=== PATIENT | male | born 1995 ===

== ENCOUNTER 2018-05-31 17:59 | Inpatient (IN) | payer SELFPAY ==
[2018-05-31] MEDS ORDERED: PROPOFOL/EMULSION 1,000 MG/100 ML BOTTLE IV ONE ×2 (18:08→18:21)
[2018-05-31 18:29] LABS: PLATELET COUNT 324 10^3/uL (150-400)
[2018-05-31 18:32] LABS: INR 1.14 (0.83-1.16); PROTIME(PATIENT) 14.8 SEC (12.0-15.0)
[2018-05-31] MEDS ORDERED: fentaNYL 100 MCG/2 ML INJ IVP ONE ×3 (18:43→21:30)
[2018-05-31] MEDS ORDERED: PROPOFOL 200 MG/20 ML VIAL IVP ONE (18:44)
[2018-05-31] MEDS ORDERED: SUCCINYLCHOLINE CHLORIDE 200 MG/10 ML SYR IVP ONE (18:45)
[2018-05-31] MEDS ORDERED: NS 2,000 ML IV ONE (18:45)
[2018-05-31] MEDS ORDERED: ETOMIDATE 40 MG/20 ML INJ IVP ONE (18:46)
[2018-05-31] MEDS: PROPOFOL/EMULSION 100 ML IV SCH (18:54)
[2018-05-31] MEDS ORDERED: fentaNYL/NACL 100 ML IV SCH (19:00)
[2018-05-31] MEDS ORDERED: KETAMINE 200 MG/20 ML VIAL ONE (19:36)
[2018-05-31] MEDS ORDERED: VECURONIUM BROMIDE 10 MG VIAL ONE (19:37)
[2018-05-31] MEDS ORDERED: NS 1,000 ML IV ONE ×2 (19:48→21:30)
[2018-05-31] MEDS ORDERED: MIDAZOLAM 2 MG/2 ML VIAL ONE (19:52)
[2018-05-31] MEDS ORDERED: fentaNYL 100 MCG/2 ML INJ ONE (19:52)
[2018-05-31] MEDS ORDERED: LIDOCAINE 1% 300 MG/30 ML SDV ONE (19:52)
[2018-05-31] MEDS ORDERED: IOHEXOL 350mgI/ML (OMNIPAQUE) 150 ML BTL IV ONE (19:53)
--- NOTE | 2018-05-31 19:55 | EDPHY ---
H & P Time Seen by Provider: 05/31/18 18:03 HPI/ROS: HPI Cardiac arrest. 22-year-old male by ambulance emergently. This patient was playing [place] with friends [place] [employer] [place] when he suddenly collapsed and was unresponsive. Friends and bystanders initiated CPR immediately. He was shocked once by an AED according to EMS. On EMS arrival he was breathing spontaneously but was unresponsive. On arrival to the emergency department he was in the same condition, breathing spontaneously but agonal/shallow and unresponsive. No history of trauma. EMS reports pulse oximetry reading of 96% during their care. Later history obtained from his parents, no history of seizures, he does have a history of palpitations and lightheadedness with exercise when he was in the 8th and 9th grade. He was evaluated by a vice president integrated and had a remote cardiac technologist placed at that time. No clear diagnosis was established. He has not had any complaints of palpitations with exercise or lightheadedness or other complaints with exercise since that time. His parents tell me that he is very physically active. ROS: Unable to obtain. Past medical history: As above. Social history: Nonsmoker. No drugs or alcohol according to the parents. Student [employer]. Physical Exam: General Appearance: Eyes open. Unresponsive. Agonal and shallow spontaneous respirations. Head: Normocephalic atraumatic. Eyes: Pupils equal and round and reactive to light but sluggish at 3-2 mm bilaterally. No lid edema, erythema or injection. ENT, Mouth: Mucous membranes are moist. The pharyngeal tissues are unremarkable. No edema or swelling. No asymmetry suggestive of abscess. No erythema or exudates. No tongue lacerations/contusion or abrasions. Respiratory: There are no retractions, lungs are clear to auscultation anteriorly with short shallow respirations. Respiratory rate of 15. Cardiovascular: Regular rate and rhythm. No murmur appreciated. Gastrointestinal: Abdomen is soft. Neurological: Intermittent shivering. I do not believe this is seizure activity. He has moved all 4 extremities. Skin: Warm and dry, no rashes. Musculoskeletal: Neck is supple. Extremities are symmetrical. Database: EKG: EKG time is 6:02 p.m.; EKG shows a narrow complex normal sinus rhythm with a ventricular rate of 93. Probable early repolarization pattern. Possible left ventricular hypertrophy. The MS, QRS, QT intervals are within normal limits. There are no ST-T wave changes indicative of ischemic or injury pattern. No evidence of right heart strain. No evidence of WPW, Brugada syndrome, hypertrophic cardiomyopathy. Interpreted by me. Imaging: CT head without contrast: No hemorrhage. No acute pathology. Results were discussed with staff radiologist Dr. Dino Nielsen. Chest x-ray AP portable; the cardiac mediastinal silhouette is unremarkable. Endotracheal tube tip is at the level of the clavicles. No evidence of infiltrate or pneumothorax. No acute cardiopulmonary disease process noted. Interpreted by me. Procedures: Indication for the procedure was unresponsive, probable post-cardiac arrest with a possible anoxic brain injury. The patient was preoxygenated with 100% oxygen by face mask. The patient was sedated with 20 mg of IV etomidate and paralyzed with 200 mg of IV succinylcholine. The patient was orally endotracheally intubated under direct visualization with a 6.5 ETT. Initial attempt made with 7.5 ET tube. This was too big and I was not able to pass the tube through the glottic opening. Tracheal intubation was confirmed with misting on the tube; breath sounds were auscultated equally bilaterally; appropriate color change with [place] Tidal CO2 detector, capnography waveform is appropriate, oxygen saturation after procedure is 95%. Chest X-ray shows ETT in good position. The procedure was performed by myself. Emergency department course: Just after arrival, the patient was intubated as above. This was followed by sedation with a combination of propofol and fentanyl. This patient's presentation is most consistent with cardiac arrest and possible anoxic brain injury. Although seizure unlikely propofol has strong antiepileptic activity. The patient was initially resistant to sedative medications, bucking the vent etc. He was given several bolus doses of propofol at 40 mg each and fentanyl at 100 mcg each through his emergency department course. Propofol drip was then continued 50 micrograms/kilogram per minute and fentanyl drip initiated at 1 mcg per minute. After intubation EKG was obtained and reviewed by myself. This was followed by a chest x-ray and transfer to CT for noncontrast CT scan of his head. Once this was verified as normal. Echocardiogram was obtained. I discussed the results of his echocardiogram with vice president integrated Dr. Souleymane Luna as Rah Eubanks. Initial impression is that this study is normal. The patient had several episodes of a shivering like activity. I do not believe this represented seizure activity. According to his parents he has no history of seizures and there was no evidence of tongue biting. Given his previous history of some undefined arrhythmia it is most likely his presentation is secondary to arrhythmia and cardiac arrest. EMS stated that pulse oximetry on their evaluation was 96%. While in the emergency department his pulse oximetry did not dip below 93% even during intubation. After discussing the case further with on-call vice president integrated Dr. Eubanks well as Dr. Daniel Armando. Decision was made to take the patient to the canvas shop laborer for coronary angiogram in to initiate HACA protocol. Prior to transfer to the canvas shop laborer, the patient was paralyzed with 10 mg of IV vecuronium in consultation with vice president integrated Dr. Daniel Armando. Dr. Daniel Armando was at the patient's bedside at 7:40 p.m.. The patient received a total of 2 L of IV normal saline during his emergency department stay. Wise catheter was placed. The patient was transferred to the canvas shop laborer in stable condition under the care of Dr. Armando. I also spoke to Dr. Hastings, hospitalist on-call who will serve as the primary admitting physician for this patient. He evaluated the patient in the emergency department as well. I spoke with the patient's parents twice during his emergency department care. They consented to hypothermia treatment as well as the canvas shop laborer and other measures taken during his emergency department course. 10:45 p.m., I spoke with the patient's mother. They live in [place]. She and her will arrive at the hospital tomorrow morning. I updated both of them on his care and current condition. All of her questions were answered. Differential Diagnosis: The differential diagnosis on this patient includes but is not limited to cardiac arrest secondary to arrhythmia, anoxic brain injury. Seizure, meningitis, encephalitis, hypoglycemia, traumatic brain injury unlikely. This represents a partial list of diagnoses considered. These considerations are based on history, physical exam, past history, reassessment and diagnostic testing. Smoking Status: Unknown if ever smoked Constitutional: Initial Vital Signs Heart Rate 94 05/31/18 17:59 Respiratory Rate 8 L 05/31/18 17:59 Blood Pressure 155/112 H 05/31/18 17:59 O2 Sat (%) 94 05/31/18 17:59 O2 Delivery Mode Ventilator Allergies/Adverse Reactions: Sulfa (Sulfonamide Antibiotics) Allergy (Verified 06/01/18 14:21) GI Upset Home Medications: Medication Instructions Recorded NK [No Known Home Meds] 05/31/18 Medical Decision Making Critical Care Time: I spent a total of 106 minutes of critical care time in obtaining history, performing a physical exam, bedside monitoring of interventions, collecting and interpreting tests and discussion with consultants but not including time spent performing procedures. - Data Points Laboratory Results: Laboratory Results 05/31/18 18:00 05/31/18 18:09 Medications Given: Dextrose (Dextrose 50% Syringe) 25 gm IVP PRN PRN PRN Reason: Hypoglycemia Stop: 11/28/18 22:24 Last Admin: 06/02/18 02:26 Dose: 12.5 gm Sodium Chloride (Ns) 1,000 mls @ 100 mls/hr IV CONT BLAYNE Stop: 11/27/18 21:29 Last Admin: 06/02/18 05:52 Dose: 1,000 mls Fentanyl/Sodium Chloride (Fentanyl 10 Mcg/Ml (Premix)) 100 mls @ 0 mls/hr IV CONT BLAYNE; Per Protocol PRN Reason: Protocol Stop: 06/10/18 21:29 Last Admin: 06/02/18 00:33 Dose: 100 mls Propofol (Diprivan 10 Mg/Ml (Premix)) 100 mls @ 0 mls/hr IV CONT BLAYNE; Per Protocol PRN Reason: Protocol Stop: 11/27/18 21:29 Last Admin: 06/02/18 11:36 Dose: 100 mls Vecuronium [place] 50 mg/ (Dextrose) 50 mls @ 0 mls/hr IV CONT BLAYNE; Per Protocol PRN Reason: Protocol Stop: 11/27/18 21:29 Last Admin: 06/01/18 22:32 Dose: 50 mls Norepinephrine 4 mg/ Sodium (Chloride) 504 mls @ 0 mls/hr IV CONT PRN; Protocol ; Per Protocol PRN Reason: MAP less than 80 mmHg Stop: 11/27/18 21:29 Last Admin: 06/01/18 02:13 Dose: 504 mls Nicardipine/Sodium Chloride (Cardene 0.1 Mg/Ml (Premix)) 200 mls @ 0 mls/hr IV CONT PRN; Protocol; Per Protocol PRN Reason: SBP greater than 160mmHg Stop: 11/27/18 21:29 Last Admin: 06/01/18 01:30 Dose: 200 mls Pantoprazole Sodium (Protonix) 40 mg IVP Q6H BLAYNE Stop: 11/27/18 23:44 Last Admin: 06/02/18 11:34 Dose: 40 mg Discontinued Medications Etomidate (Etomidate) 20 mg IVP EDNOW ONE Stop: 05/31/18 18:47 Last Admin: 05/31/18 18:54 Dose: 20 mg Fentanyl (Sublimaze) 300 mcg IVP EDNOW ONE Stop: 05/31/18 18:44 Last Admin: 05/31/18 18:54 Dose: 300 mcg Fentanyl (Sublimaze) 100 mcg IVP EDNOW ONE Stop: 05/31/18 19:01 Last Admin: 05/31/18 19:01 Dose: 100 mcg Fentanyl (Sublimaze) 50 mcg IVP ONCE ONE Stop: 05/31/18 21:31 Last Admin: 05/31/18 23:35 Dose: Not Given Fentanyl/Sodium Chloride (Fentanyl 10 Mcg/Ml (Premix)) 100 mls @ 0 mls/hr IV CONT BLAYNE; As Directed PRN Reason: Protocol Stop: 06/10/18 18:59 Last Admin: 05/31/18 19:15 Dose: 100 mls Propofol (Diprivan 10 Mg/Ml (Premix)) 100 mls @ 0 mls/hr IV CONT BLAYNE; Titrate PRN Reason: Protocol Stop: 11/27/18 18:59 Last Admin: 06/01/18 01:31 Dose: 100 mls Sodium Chloride (Ns) 2,000 mls @ 0 mls/hr IV EDNOW ONE; Wide Open PRN Reason: Protocol Stop: 05/31/18 18:46 Last Admin: 05/31/18 18:45 Dose: 2,000 mls Sodium Chloride (Ns) 1,000 mls @ 0 mls/hr IV EDNOW ONE; As Directed PRN Reason: Protocol Stop: 05/31/18 19:49 Last Admin: 05/31/18 19:53 Dose: 1,000 mls Sodium Chloride (Ns) 1,000 mls @ 0 mls/hr IV ONCE ONE PRN Reason: Wide Open Stop: 05/31/18 21:31 Last Admin: 05/31/18 23:39 Dose: Not Given Levetiracetam (Keppra (Premix)) 100 mls @ 400 mls/hr IV ONCE ONE Stop: 05/31/18 21:43 Last Admin: 05/31/18 21:54 Dose: 100 mls Potassium Chloride (Potassium Cl 20 Meq (Premix)) 50 mls @ 50 mls/hr IV Q1H [facility] Stop: 06/01/18 03:44 Last Admin: 06/01/18 03:09 Dose: 50 mls Potassium Chloride (Potassium Cl 10 Meq (Premix)) 50 mls @ 100 mls/hr IV Q30M [facility] Stop: 06/01/18 08:44 Last Admin: 06/01/18 08:42 Dose: 50 mls Potassium Chloride (Potassium Cl 10 Meq (Premix)) 50 mls @ 100 mls/hr IV Q30M [facility] Stop: 06/01/18 15:01 Last Admin: 06/01/18 15:26 Dose: 50 mls Miscellaneous Information (Message To Rn) 1 ea MISC ONCE ONE Stop: 05/31/18 21:31 Last Admin: 05/31/18 23:35 Dose: 1 ea Miscellaneous Information (Message To Rn) 1 ea MISC DAILY [facility] Stop: 06/02/18 08:59 Last Admin: 06/01/18 09:13 Dose: 1 ea Miscellaneous Information (Message To Rn) 1 ea MISC DAILY [facility] Stop: 06/02/18 08:59 Last Admin: 06/01/18 09:13 Dose: 1 ea Propofol (Diprivan) 90 mg IVP EDNOW ONE Stop: 05/31/18 18:45 Last Admin: 05/31/18 18:54 Dose: 90 mg Succinylcholine Chloride (Quelicin) 200 mg IVP EDNOW ONE Stop: 05/31/18 18:46 Last Admin: 05/31/18 18:54 Dose: 200 mg Point of Care Test Results: Chemistry 05/31/18 05/31/18 18:17 18:09 POC Sodium 146 mEq/L H mEq/L (135-145) POC Potassium 3.0 mEq/L L mEq/L (3.3-5.0) POC Chloride 105 mEq/L mEq/L (97-110) POC Total CO2 16 mEq/L L mEq/L (22-31) POC BUN 10 mg/dL mg/dL (7-23) POC Creatinine 1.5 mg/dL H mg/dL (0.7-1.3) POC Glucose 195 mg/dL H mg/dL (70-100) POC Troponin I 0.01 ng/mL ng/mL (0.00-0.08) Blood Gas/Lactic Acid-Arterial 05/31/18 18:50 Tidal Volume 400 ISTAT H&H 05/31/18 18:09 POC Hgb 15.3 gm/dL gm/dL (13.7-17.5) POC Hct 45 % % (40-51) Departure - Departure Disposition: [facility] [place] Acute Clinical Impression: Unresponsive, Cardiac arrest
[2018-05-31] MEDS ORDERED: BIVALIRUDIN 250 MG/5 ML VIAL IV ONE (19:56)
[2018-05-31] MEDS ORDERED: ATROPINE SULFATE 1 MG/10 ML SYR ONE (19:56)
[2018-05-31] MEDS ORDERED: EPINEPHrine 1 MG/10 ML SYR IVP ONE (19:56)
[2018-05-31] MEDS ORDERED: ONDANSETRON 4 MG/2 ML VIAL IVP PRN (20:10)
--- NOTE | 2018-05-31 20:12 | PDHPUP ---
History & Physical Update H&P update statement: This history and physical update is based on an assessment of the patient which was completed after admission or registration (within 24 hours), but prior to the surgery/procedure. H&P update: H&P reviewed & patient examined, no change in patient's condition since H&P completed
--- NOTE | 2018-05-31 20:13 | PDPROPOC ---
Sedation Plan of Care Sedation Plan of Care: vital signs stable, mental status noted ASA Classification: ASA 2 Planned drugs: other (Currently intubated and sedated with propofol.) Mallampati Score: Unable to assesss Mallampati Reference Image:
--- NOTE | 2018-05-31 20:56 | PDDXCAT ---
Diagnostic Cath Note - . Date: 05/31/18 Career Advisor: Tr Indication: other (Possible cardiac arrest) - Procedure Access: right groin Procedure: left heart catheterization, coronary angiography, left ventriculogram , other (Placement of cooling catheter for targeted temperature management.) - Materials Left Heart Cath size: 6F Left Heart Cath materials: standard multipack (JL4, JR4, pigtail) - Findings-Left Heart Catheterization LM: Angiographically normal. LAD: Angiographically normal. LCX: Angiographically normal. RCA: Angiographically normal. EDP: 33 mmHg LVEF: 70% Wall motion: Normal Complications: None Estimated blood loss: <50ml Assessment: 1) Angiographically normal coronary arteries. 2) Normal left ventricular systolic function. 3) Uneventful placement of a Zoll Quatrocath via the RFV for targeted temperature management. Patient Problems: Problems Problem Status Onset Cardiac arrest Acute Unresponsive Acute
--- NOTE | 2018-05-31 21:07 | ECHO ---
[email or web address] [id number] Main: [phone] Fax: Transthoracic Echocardiogram Name: FEDERICO ROMERO MR#: [id number] Study Date: 05/31/2018 Study Time: Date of : 1995 Age: 22 year(s) Height: ( ) Weight: ( ) BSA: Gender: Male Examination: Limited Echo Indication: LIMITED FOR VALVES Image Quality: Contrast: Requested by: Cedrick Hastings BP: / Heart Rate: Rhythm: Indication: LIMITED FOR VALVES Procedure Staff Dixonac Operator: Leesa Davis [facility] Reading Physician: Daniel Armando MD Requesting Provider: Conclusions: Mild mitral valve regurgitation is present. Trivial tricuspid valve regurgitation. Note: this study consists of additional views obtained in the cardiac rangel[employer] conservation laborer just prior to cath procedure. Extra views obtained because the tricuspid valve was not well visualized in the ER. See prior report. Measurements: Chambers Valvular Assessment AV/MV Valvular Assessment TV/PV Normal Normal Normal Name Value Range Name Value Range Name Value Range Continued Measurements: Findings: Mitral Valve: The mitral valve is normal in appearance and function. Mild mitral valve regurgitation is present. Aortic Valve: The aortic valve is normal in appearance and function. Tricuspid Valve: The tricuspid valve is normal in appearance and function. Trivial tricuspid valve regurgitation. (No Signature Object) Patient: FEDERICO ROMERO Study Date: 05/31/2018 Page 1 of 1 [id number]
--- NOTE | 2018-05-31 21:20 | CPEKG ---
Test Reason : OPEN Blood Pressure : / mmHG Vent. Rate : 093 BPM Atrial Rate : 093 BPM P-R Int : 185 ms QRS Dur : 091 ms QT Int : 344 ms P-R-T Axes : 083 087 -18 degrees QTc Int : 428 ms Sinus rhythm Anterior infarct, possibly acute Confirmed by Dima Talavera ([id number]) on 05/31/2018 9:19:37 PM Referred By: Dima Talavera Confirmed By:Dima Talavera
[2018-05-31] MEDS ORDERED: levETIRAcetam 1000MG/NACL 100 ML IV ONE (21:29)
[2018-05-31] MEDS ORDERED: NOREPINEPHRINE BITARTRATE 4 MG in NS 500 ML IV PRN (21:30)
[2018-05-31] MEDS ORDERED: MIDAZOLAM 2 MG/2 ML VIAL IVP PRN (21:30)
[2018-05-31] MEDS ORDERED: NS 250 ML IV PRN (21:30)
[2018-05-31] MEDS ORDERED: MIDAZOLAM HCL 50 MG in D5W 50 ML IV PRN (21:30)
[2018-05-31] MEDS ORDERED: RN MUST ADD K & MAG PROT TO WORKLIST MISC ONE (21:30)
--- NOTE | 2018-05-31 21:45 | PDGENHP ---
History and Physical - Chief Complaint unresponsive - History of Present Illness 22 yo male was playing [place] [employer] [place] when he suddenly collapsed and was unresponsive. Friends in bystanders initiated CPR immediately. He was shocked once by an AED according to EMS. On EMS arrival he was breathing spontaneously but was unresponsive. On arrival to the emergency department he was in the same condition, breathing spontaneously but agonal E and unresponsive. He was intubated. Cardiology was consulted. An echocardiogram was unremarkable. A troponin is unremarkable. According to his parents, no history of seizures, history of palpitations with exercise when he was in the 8th and 9th grade. He was evaluated by a fashion design professor and had a remote fulling machine operator placed for some time. No clear diagnosis was established. He has not had any complaints of palpitations with exercise or lightheadedness or other complaints with exercise since that time. Syncope has not been mentioned as part of his medical history. Magnesium was not checked. He was not noted to have arrhythmia on presentation. He was noted to be shivering prior to initiation of HACA. No e/o of tongue biting ROS: Unable to obtain. Past medical history: As above. Social history: Nonsmoker. No drugs or alcohol according to the parents. Student [employer]. EKG:Query ST elevation anterior leads Echo: reported no right heart strain, normal LVEF, no wall motion abnormalities CT head without contrast: No hemorrhage. No acute pathology. Chest x-ray AP portable; the cardiac mediastinal silhouette is unremarkable. Endotracheal tube tip is at the level of the clavicles. No evidence of infiltrate or pneumothorax. No acute cardiopulmonary disease process noted. Interpreted by me. History Information - Allergies/Home Medication List Allergies/Adverse Reactions: Sulfa (Sulfonamide Antibiotics) Allergy (Verified 05/31/18 18:30) Home Medications: Unobtainable 05/31/18 [Last Taken Unknown] I have personally reviewed and updated: medical history, social history - Social History Smoking Status: Unknown if ever smoked Review of Systems Review of Systems: ROS: 10pt was reviewed & negative except for what was stated in HPI & below Physical Exam Physical Exam: Temp Pulse Resp BP Pulse Ox 37.1 C 98 16 117/62 98 05/31/18 20:30 05/31/18 20:30 05/31/18 20:30 05/31/18 20:30 05/31/18 20:30 Constitutional: no apparent distress Eyes: PERRL, No EOMI Ears, Nose, Mouth, Throat: moist mucous membranes Cardiovascular: regular rate and rhythym, No edema Respiratory: no respiratory distress, reduced air movement Gastrointestinal: normoactive bowel sounds, soft, non-tender abdomen Skin: warm Neurologic: No AAOx3 Lymph, Heme, Immunologic: No petechiae Lab Data & Imaging Review 05/31/18 18:00 05/31/18 18:09 WBC 11.45 10^3/uL (3.80-9.50) H 05/31/18 18:00 RBC 4.80 10^6/uL (4.40-6.38) 05/31/18 18:00 Hgb 14.8 g/dL (13.7-17.5) 05/31/18 18:00 POC Hgb 15.3 gm/dL (13.7-17.5) 05/31/18 18:09 Hct 44.9 % (40.0-51.0) 05/31/18 18:00 POC Hct 45 % (40-51) 05/31/18 18:09 MCV 93.5 fL (81.5-99.8) 05/31/18 18:00 MCH 30.8 pg (27.9-34.1) 05/31/18 18:00 MCHC 33.0 g/dL (32.4-36.7) 05/31/18 18:00 RDW 12.8 % (11.5-15.2) 05/31/18 18:00 Plt Count 324 10^3/uL (150-400) 05/31/18 18:00 MPV 10.8 fL (8.7-11.7) 05/31/18 18:00 Neut % (Auto) Not Reported 05/31/18 18:00 Lymph % (Auto) Not Reported 05/31/18 18:00 Twiggs % (Auto) Not Reported 05/31/18 18:00 Eos % (Auto) Not Reported 05/31/18 18:00 Baso % (Auto) Not Reported 05/31/18 18:00 Nucleat RBC Rel Count Not Reported 05/31/18 18:00 Absolute Neuts (auto) Not Reported 05/31/18 18:00 Absolute Lymphs (auto) Not Reported 05/31/18 18:00 Absolute Monos (auto) Not Reported 05/31/18 18:00 Absolute Eos (auto) Not Reported 05/31/18 18:00 Absolute Basos (auto) Not Reported 05/31/18 18:00 Absolute Nucleated RBC Not Reported 05/31/18 18:00 Immature Gran % Not Reported 05/31/18 18:00 Seg Neutrophils % 74.3 % 05/31/18 18:00 Band Neutrophils % 0.0 % 05/31/18 18:00 Lymphocytes % 24.7 % 05/31/18 18:00 Monocytes % 1.0 % 05/31/18 18:00 Eosinophils % 0.0 % 05/31/18 18:00 Basophils % 0.0 % 05/31/18 18:00 Metamyelocytes % 0.0 % 05/31/18 18:00 Myelocytes % 0.0 % 05/31/18 18:00 Promyelocytes % 0.0 % 05/31/18 18:00 Blast Cells % 0.0 % 05/31/18 18:00 Immature Gran # Not Reported 05/31/18 18:00 Absolute Seg Neuts 8.51 10^3/uL (1.70-6.50) H 05/31/18 18:00 Absolute Band Neuts 0.00 10^3/uL (0.00-0.70) 05/31/18 18:00 Absolute Lymphocytes 2.83 10^3/uL (1.00-3.00) 05/31/18 18:00 Absolute Monocytes 0.11 10^3/uL (0.30-0.80) L 05/31/18 18:00 Absolute Eosinophils 0.00 10^3/uL (0.03-0.40) L 05/31/18 18:00 Absolute Basophils 0.00 10^3/uL (0.02-0.10) L 05/31/18 18:00 Absolute Metamyelocyte 0.00 10^3/mL (0.00-0.00) 05/31/18 18:00 Absolute Myelocytes 0.00 10^3/mL (0.00-0.00) 05/31/18 18:00 Absolute Promyelocytes 0.00 10^3/uL (0.00-0.00) 05/31/18 18:00 Absolute Plasma Cells 0.00 10^3/uL (0.00-0.00) 05/31/18 18:00 Nucleated RBCs 0 /100 WBC (0-0) 05/31/18 18:00 RBC/WBC/PLT Morphology NORMAL (NORMAL) 05/31/18 18:00 Absolute Blast Cells 0.00 10^3/uL (0.00-0.00) 05/31/18 18:00 Plasma Cells % 0.0 % 05/31/18 18:00 Platelet Estimate ADEQUATE (ADEQ) 05/31/18 18:00 PT 14.8 SEC (12.0-15.0) 05/31/18 18:09 INR 1.14 (0.83-1.16) 05/31/18 18:09 APTT 26.3 SEC (23.0-38.0) 05/31/18 18:09 Puncture Site LEFT RADIAL 05/31/18 19:43 Patient Temperature 37.0 DEGREES 05/31/18 19:43 pCO2 41 mmHg (34-38) H 05/31/18 19:43 pO2 149 mmHg (65-75) H 05/31/18 19:43 Total CO2 23 mEq/L (23-27) 05/31/18 19:43 ABG pH 7.35 (7.35-7.45) 05/31/18 19:43 ABG PO2/FiO2 Ratio 299 RATIO 05/31/18 18:50 ABG HCO3 22 mEq/L (22-26) 05/31/18 19:43 ABG O2 Saturation 99 % (92-95) H 05/31/18 19:43 ABG Base Excess -2.9 mEq/L (-2.5-2.5) L 05/31/18 19:43 O2 Concentration % 40 % (0-100) 05/31/18 19:43 Respiration Rate 18 05/31/18 19:43 Set Respiration Rate 18 05/31/18 19:43 Assist Control YES 05/31/18 19:43 Tidal Volume 400 05/31/18 19:43 PEEP 5 05/31/18 19:43 POC Sodium 146 mEq/L (135-145) H 05/31/18 18:09 Sodium 143 mEq/L (135-145) 05/31/18 18:09 POC Potassium 3.0 mEq/L (3.3-5.0) L 05/31/18 18:09 Potassium 3.9 mEq/L (3.5-5.2) 05/31/18 18:09 POC Chloride 105 mEq/L (97-110) 05/31/18 18:09 Chloride 106 mEq/L (97-110) 05/31/18 18:09 Carbon Dioxide 19 mEq/l (22-31) L 05/31/18 18:09 POC Total CO2 16 mEq/L (22-31) L 05/31/18 18:09 Anion Gap 18 mEq/L (6-14) H 05/31/18 18:09 POC BUN 10 mg/dL (7-23) 05/31/18 18:09 BUN 12 mg/dL (7-23) 05/31/18 18:09 Creatinine 1.3 mg/dL (0.7-1.3) 05/31/18 18:09 POC Creatinine 1.5 mg/dL (0.7-1.3) H 05/31/18 18:09 Estimated GFR > 60 05/31/18 18:09 Glucose 176 mg/dL (70-100) H 05/31/18 18:09 POC Glucose 195 mg/dL (70-100) H 05/31/18 18:09 Calcium 9.2 mg/dL (8.5-10.4) 05/31/18 18:09 POC Troponin I 0.01 ng/mL (0.00-0.08) 05/31/18 18:17 Urine Opiates Screen NEGATIVE (NEGATIVE) 05/31/18 19:01 Urine Barbiturates NEGATIVE (NEGATIVE) 05/31/18 19:01 Ur Phencyclidine Scrn NEGATIVE (NEGATIVE) 05/31/18 19:01 Ur Amphetamine Screen NEGATIVE (NEGATIVE) 05/31/18 19:01 U Benzodiazepines Scrn NEGATIVE (NEGATIVE) 05/31/18 19:01 Urine Cocaine Screen NEGATIVE (NEGATIVE) 05/31/18 19:01 U Marijuana (THC) Screen NEGATIVE (NEGATIVE) 05/31/18 19:01 Assessment & Plan Assessment: #Possible Cardiac Arrest #Possible Arrhythmia #Acute Hypoxic Respiratory Failure #Hypokalemia #Metabolic Acidosis #Unresponsiveness #Shivering, Query Seizure? #Acute Kidney Injury Plan: The pt was taken to the laborer plumbing and this was unremarkable. TTE reported unremarkable. No e/o right heart strain. HACA has been started HACA labs Cont with Fentanyl and Propofol Neuromuscular blockade if needed Will provide one time dose of Keppra. Unable to obtain EEG Neurology to follow, consulted in the EMR, not notified D/W ER, Cinema Operator, Forging Press Operator, ICU team/nursing total critical care time is 90 minutes
[2018-05-31] MEDS: VECURONIUM BROMIDE 50 MG in D5W 50 ML IV SCH (21:54)
[2018-05-31] MEDS: niCARdipine/NACL 200 ML IV PRN (22:00)
[2018-05-31] MEDS ORDERED: PROTOCOL MAGNESIUM 1 DOSE IV PRN (22:41)
[2018-05-31] MEDS ORDERED: PROTOCOL POTASSIUM 1 DOSE MISC PRN (22:41)
[2018-06-01] MEDS: PANTOPRAZOLE SODIUM 40 MG VIAL IVP SCH ×4 (00:41→18:31)
[2018-06-01] MEDS: niCARdipine/NACL 200 ML IV PRN (01:30)
[2018-06-01] MEDS: NS 1,000 ML IV SCH ×3 (01:30→21:03)
[2018-06-01] MEDS: PROPOFOL/EMULSION 100 ML IV SCH ×4 (01:31→19:12)
[2018-06-01] MEDS: POTASSIUM Cl (KCl) 50 ML IV SCH ×8 (02:01→15:26)
[2018-06-01] MEDS: VECURONIUM BROMIDE 50 MG in D5W 50 ML IV SCH ×2 (03:59→22:32)
[2018-06-01] MEDS: fentaNYL/NACL 100 ML IV SCH (03:59)
--- NOTE | 2018-06-01 05:24 | GHP ---
[f rep st] HISTORY AND PHYSICAL DATE OF ADMISSION: 05/31/2018 REASON FOR ADMISSION: Possible cardiac arrest. HISTORY OF PRESENT ILLNESS: The history is taken from a conversation with my partner, Dr. Rah Eubanks, who evaluated the patient shortly after his arrival to the emergency room and from discussion with Dr. Talavera in the emergency room. The patient is a 22-year-old male who is a student at the [employer]. He was playing soccer at the [facility] earlier today when he suddenly collapsed. Bystander CPR was initiated. An AED unit was applied and a shock was advised. The patient was transported by paramedics to [facility] with a pulse and normal blood pressure. In the emergency room, his ECG demonstrated precordial J-point elevation with convex ST-T wave segments. The computer interpretation was anterior NE. However, my interpretation is that this is J-point elevation representing early repolarization in a young asthenic male. The patient was shivering significantly. He had been intubated and was sedated. A head CT was negative. During my conversation with Dr. Eubanks, it seemed that this was more likely to be a neurologic event such as a seizure. The emergency room attending spoke with the patient's parents in [place] and they related that, as a child, he had experienced palpitations and was evaluated by a [employer] ii inspector. Testing did not disclose any significant abnormality and the patient was cleared to continue playing soccer. PAST MEDICAL HISTORY: No major medical problems. PAST SURGICAL HISTORY: Unknown. MEDICATIONS: Believed to be none. ALLERGIES: Sulfa. FAMILY HISTORY: Noncontributory. SOCIAL HISTORY: As mentioned, he is a student at the [employer]. His habits with respect to alcohol and substance use are unknown. REVIEW OF SYSTEMS: Unobtainable at this time. PHYSICAL EXAMINATION: VITAL SIGNS: Heart rate 69 with sinus rhythm on the monitor. Blood pressure 123/69. O2 saturation 100% on the ventilator. GENERAL : This is a thin, healthy-appearing young male who is sedated and paralyzed and intubated. HEAD AND NECK: No scleral icterus. Mucous membranes moist. Carotid pulses 2+ without bruits. CHEST: Lung montalvo clear anteriorly. CARDIAC: Regular rate and rhythm with normal S1 and S2. There is no murmur or gallop. ABDOMEN: Soft, nondistended, and without masses. Normal bowel sounds. EXTREMITIES: 2+ pulses and no peripheral edema. ECG: His ECG demonstrates normal sinus rhythm. He has borderline voltage criteria for LVH. He has early precordial J-point elevation, which again has an appearance most consistent with early repolarization. There is no evidence of ventricular pre-excitation or changes consistent with Brugada syndrome. ECHOCARDIOGRAM: An echo performed in the ER demonstrated normal LV systolic function without regional wall motion abnormalities and no valvular heart disease. LABORATORY STUDIES: Sodium 143, potassium 3.9, BUN and creatinine 12 and 1.3. Troponin is 0.01. His CBC demonstrates a white blood cell count of 11.45 with hemoglobin and hematocrit of 14.8 and 44.9. Platelet count 324,000. IMPRESSION: This is a 22-year-old male who collapsed while exercising. [facility]er [facility] We do not have confirmation that he was technically pulseless. An AED was applied and a shock was advised. This would seem to indicate a significant ventricular arrhythmia. However, I have concerns that his shivering could have produced artifact that the AED interpreted as ventricular tachycardia or ventricular fibrillation. He has had spontaneous circulation since being transported by paramedics to [facility]. His "shivering" also raises concerns for me with respect to status epilepticus. In light of his dramatic presentation and some vague history of a potential arrhythmia issue in childhood, it seems prudent to take the patient to the cardiac catheterization lab to place a catheter for targeted temperature management. Since he is going to the cardiac optical laboratory manager, we will also take that opportunity to perform coronary angiography to rule out any sort of coronary anomaly. /[id number]/MODL MTDD
[2018-06-01 06:45] LABS: PLATELET COUNT 260 10^3/uL (150-400)
[2018-06-01 06:46] LABS: INR 1.15 (0.83-1.16); PROTIME(PATIENT) 14.9 SEC (12.0-15.0)
[2018-06-01] MEDS ORDERED: RN MUST ADD CA+ & PHOS PROTOCOL TO WORKLIST MISC SCH (09:00)
[2018-06-01] MEDS ORDERED: RN MUST REMOVE K+ & MG+ PROTOCOL FRM WORKLIST MISC SCH (09:00)
--- NOTE | 2018-06-01 09:06 | GCON ---
[f rep st] CONSULTATION PELT GRADER CONSULTATION REFERRING PHYSICIAN: Cedrick Hastings MD I was asked by Dr. Cedrick Hastings to see the patient. REASON FOR ADMISSION: Status post cardiac arrest. James Wiseman is a 22-year-old male. 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 He was playing indoor pickup soccer at the [place] when he conway ddenly collapsed. CPR was started, and an AED was applied, and patient was shocked. He was transpor kirk to the emergency room. He was subsequently intubated, placed on mechanical ventilation. He went to the Cardiac Catheter Lab which showed no evidence of coronary artery disease. He was then transf erred to the Intensive Care Unit and placed on HACA protocol. Currently, he is sedated, paralyzed, o n mechanical ventilation. All history is gleaned from the medical record. REVIEW OF SYSTEMS: A 10-point review of systems was attempted but unable to be performed secondary t o sedation and mechanical ventilation. PAST MEDICAL HISTORY: Unknown. PAST SURGICAL HISTORY: Unknown. ALLERGIES: Sulfa. FAMILY HISTORY: Noncontributory. SOCIAL HISTORY: Unknown alcohol use, unknown substance use. He is a student at the [employer]. His family lives in [place]. PHYSICAL EXAM: VITAL SIGNS: Blood pressure 139/80, pulse is 50, respirations 22, temperature is 33. 0. Oxygen saturation 100% on mechanical ventilation 40%. GENERAL: He is a well-developed, well-nou rished 22-year-old male who is sedated and on mechanical ventilation. HEENT: Pupils are smallish bu t reactive to light. Throat, endotracheal tube is in good position. NECK: Supple. There is no cer vical adenopathy. CARDIAC: Heart is regular rate and rhythm without murmurs, rub or gallop. RESPIR ATORY: Lungs are clear to auscultation. No wheeze or rhonchi. GI: Abdomen is soft, nontender. Chi wel sounds present in all 4 quadrants. EXTREMITIES: No clubbing, cyanosis or edema. LABORATORIES: White count 16.6, hemoglobin 14, hematocrit 42, platelet count is 260. INR is 1.15. Sodium 141, potassium 3.1, chloride 112, CO2 is 19, BUN 9, creatinine 0.8, glucose is 151. AST is mi ldly elevated at 69, ALT is elevated at 102. Toxicology screen is negative. Arterial blood gas: Th e pH is 7.50, pCO2 of 23, PO2 of 190, bicarbonate 19, oxygen saturation is 99%; this is on an AC of 2 2, tidal volume 450, +5 of PEEP, 40%. IMAGING: CT scan of the head was negative. Echocardiogram shows mild mitral regurgitation. No other information is provided. Chest x-ray shows endotracheal tube in good position. Lungs are clear. No cardiomegaly is present. IMPRESSION: 1. Status post cardiac arrest, etiology which is unclear. Cardiac catheterization was apparently ne gative. 2. Acute respiratory failure secondary to above. 3. Incomplete database. 4. Hypokalemia. 5. Elevated liver function tests, perhaps, secondary to low-flow state. RECOMMENDATIONS: 1. Continue mechanical ventilation for now. Will decrease respiratory rate to improve his respirato ry alkalosis. 2. Continue HACA protocol. 3. Adequate sedation. 4. Replace potassium. 5. Close cardiovascular monitoring. /[id number]/MODL
--- NOTE | 2018-06-01 10:01 | NEUROPROG ---
Assessment: [id number] - Neurology Consult: - CC: Dr. Cedrick Hastings consulted neurology for possible seizure. Results placed in EMR for his review. - HPI: 06/01/18: Pt collapsed and became unresponsive without warning while playing soccer on 05/31/18. Witnessed event w/o any convulsions seen. Brought to [facility], intubated, and admitted to ICU and placed on HACA. Cardiology consult found no cardiac cause for symptoms. I initially saw the patient on 06/01/18. His neurologic exam showed pt to be comatose. His prior history of heart palpitations with exercise supports a probable cardiac arrhythmia leading to anoxic brain injury to explain his situation. However nonconvulsive seizures are also possible. Complete HACA protocol with rewarming tomorrow morning. If pt remains unresponsive when rewarmed we will obtain an EEG tomorrow afternoon to assess for nonconvulsive seizure. Pt currently on propofol which is an anti seizure medication. - PMHx: required heart monitor in past for palpitations with exercise but no clear cardiac history - SHx: student FHx: parents alive - ROS: Pt denied acute fever, total vision loss, active severe chest pain, respiratory failure, total body severe rash, total bowel/bladder incontinence, psychosis, active seizures, or active bleeding - O: VS reviewed General: comatose Eyes: Fundoscopic exam not able to visualize optic disks CV: Heart RRR, no murmur, no carotid bruit Lungs: Clear to auscultation bilaterally, no rhonchi or rales Neuro: - Mental: Pt comatose so not oriented, poor concentration, cannot assess speech or memory or fund of knowledge - Cranial Nerves: . II: PERRL, VF cant be tested . III/IV/: eyes conjugate . V/VII: corneal reflex not clearly present (pt on paralytics) . VIII: hearing cant be tested . IX/X/XII: pt intubated so cannot assess . XI: SCM cannot be tested - Motor: . Tone: normal tone in all 4 extremity . Strength/Sensation: no withdrawal to pain - Coord: cannot assess - Gait: cannot assess - Labs: 05/31/18- UTox negative 06/01/18- Na 142 - Rads: 05/31/18- Head CT: no acute changes (I personally visualized the images on 06/01/18) - Assessment: 1. Unresponsiveness: - Plan: - Complete HACA protocol with rewarming tomorrow morning - If pt remains unresponsive when rewarmed we will obtain an EEG tomorrow afternoon to assess for nonconvulsive seizures - Neurology will continue to follow closely Objective: Vital Signs Temp Pulse Resp BP Pulse Ox 33 C L 43 L 14 115/75 100 06/01/18 09:00 06/01/18 09:00 06/01/18 09:00 06/01/18 09:00 06/01/18 09:00 Laboratory Results 06/01/18 06:20 06/01/18 06:20 05/31/18 06/01/18 06/02/18 05:59 05:59 05:59 Intake Total 4372.3 Output Total 2675 425 Balance 1697.3 -425 PT 14.9 SEC (12.0-15.0) 06/01/18 06:20 INR 1.15 (0.83-1.16) 06/01/18 06:20 Allergies/Adverse Reactions: Sulfa (Sulfonamide Antibiotics) Allergy (Verified 05/31/18 18:30)
--- NOTE | 2018-06-01 10:31 | HOSPPROG ---
Hospitalist Progress Note Assessment/Plan: DIAGNOSES: * CARDIAC ARREST 05/31 while playing soccer (reporrtedly had shockable rythym per AED, one shock followed by CPR) * on HACA for unresponsiveness, paralyzed for shivering * Acute hypoxemic/hypercarbic respiratory failure on mechanical ventilator * absence of CAD on angio * ? Upper GI bleed verses blood NG from traumatic intubation * Mild elevation of ALT likely ischemic * History of exertion induced palpitations during childhood with no findings on cardiac evaluation including home cardiac monitors PLANS: * Continue HACA protocol * Continue mechanical ventilator management * Pressor support as needed * IV Protonix q.6 hours; for follow hemoglobin and hemodynamics very closely and watch for any other signs of bleeding * Reassess neuro status after completion of HACA protocol * DVT prophylaxis Seen by me on hospitalist rounds today as well as multidisciplinary rounds Reviewed in detail with Dr. Ronaldo North >45 mins critical care time today SUBJECTIVE: Patient on HACA and sedated so symptom assessment available OBJECTIVE Vitals reviewed: Bradycardic in 40s, sinus, temperature at 33 degrees steadily , otherwise stable vitals, respirations per vent Mixer Wet Pour, my review: Sinus bradycardia Review ventilator shows good lung compliance, he is paralyzed and breathing easily with the ventilator, not needing high FiO2 2s Exam: Lying in bed with or tracheal intubation tube in proper position well secured, multiple vascular urethral and other catheters all in proper position and properly secured Sedated on ventilator and HACA No neurologic exam available due to sedation and paralysis Nasogastric tube has what looks like coffee grounds in it moderate volume removed by suction so far skin cool as expected, color OK resps not labored lungs clear BSs heart regular slow, no murmur audible abd soft nondistended, bowel sounds present limbs warm, no edema iv site ok Lab data: White count 71177 otherwise unremarkable CBC Current blood gas with adequate ventilation oxygenation, pH in normal range Potassium 3.4 rest of chemistry panels unremarkable today Normal coag studies Objective: Vital Signs Temp Pulse Resp BP Pulse Ox 33 C L 40 L 16 120/68 100 06/01/18 09:59 06/01/18 09:59 06/01/18 09:59 06/01/18 09:59 06/01/18 09:59 Laboratory Results 06/01/18 06:20 06/01/18 06:20 05/31/18 06/01/18 06/02/18 06:59 06:59 06:59 Intake Total 4372.3 Output Total 2675 425 Balance 1697.3 -425 PT 14.9 SEC (12.0-15.0) 06/01/18 06:20 INR 1.15 (0.83-1.16) 06/01/18 06:20 ICD10 Worksheet Patient Problems: Problems Problem Status Onset Cardiac arrest Acute Unresponsive Acute
--- NOTE | 2018-06-01 12:16 | ASMTCASEMG ---
Living Arrangements What is your living Answers: Alone arrangement? Who do you live with? Type Of Residence What kind of residence do Answers: Apartment you live in? 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 when he suddenly collapsed. Bystander CPR was initiated with an AED unit and a shock. Patient is being admitted for a possible cardiac arrest. Patient's mother is on her way here from [place]. DEPUTY SHERIFF GENERALIST eval ordered. Patient continues on HACA protocol as well as vent. Pressor support as needed. CM will follow. Date Signed: 06/01/2018 12:15 PM Electronically Signed By:Shaniqua Wadsworth LCSW
--- NOTE | 2018-06-01 12:56 | PDMN ---
Medical Necessity Medical necessity: MCG: GRG cardiology/ respiratory: pt presents with poss cardiac arrest, poss arrhythmia, acute hypoxic resp failure, hypokalemia, met. acidosis, unresponsiveness, shivering- query Sz., STEFFANIE, pt was playing soccer when he went down, CPR administered, shocked by AED from EMS, [facility]. vent- pt was taken to prest[facility] concrete laborer no evidence of coronary artery disease- HACA protocol initiated-
--- NOTE | 2018-06-01 16:19 | PDCARPN ---
Cardiology Progress Note Chief Complaint: Sedated and intubated Assessment/Plan: Assessment: Patient is a 22 y/o male with unremarkable past medical history, however, in speaking with the patient's mother, four episodes of palpitations were noted in the past. No syncope was ever appreciated prior to yesterday's event. Work up with cardiology did not reveal any gross pathology. Yesterday, the patient had witnessed event, and bystander CPR was started at the same time that AED was obtained. Within 20-30 seconds of placing the AED, shock was recommended ( strips were reviewed today, and appear to be torsades de pointe). CPR was continued and spontaneous rhythm was noted. When patient arrived to the ER, ECG with sinus tachycardia was noted, normal LVEF by bedside echo, and ongoing blood pressure and heart rate (unsupported) was noted. Given the history of "palpitations" provided from mother, Dr. Kathryn Armando took the patient to the cardiac rn lab (normal coronary arteries) and HACA was started. Today, HACA protocol remains in placed until 21:30 this evening. Family was at bedside today for discussion about the findings noted. Plan: (1) Maintain HACA protocol as at present (2) EP consultation tomorrow (contingent on neurologic status) Subjective: Sedated and intubated Reviewed/Discussed With: family, hospitalist Objective: Vital Signs (8 Hrs) Temp Pulse Resp BP Pulse Ox 06/01/18 15:56 32.8 C L 55 L 16 127/65 H 100 06/01/18 14:54 33.0 C L 49 L 16 132/69 H 100 06/01/18 14:00 33.1 C L 38 L 15 126/68 H 100 06/01/18 13:00 33 C L 42 L 14 108/70 100 06/01/18 11:50 32.9 C L 40 L 16 132/66 H 100 06/01/18 11:37 40 L 15 100 06/01/18 11:00 33 C L 40 L 15 121/76 H 100 06/01/18 09:59 33 C L 40 L 16 120/68 100 06/01/18 09:00 33 C L 43 L 14 115/75 100 Intake/Output (24 Hrs) 05/31/18 06/01/18 06/02/18 05:59 05:59 05:59 Intake Total 4372.3 Output Total 2675 900 Balance 1697.3 -900 Intake: Oral (ml) 0 IV Intake (ml) 100 IV Infused (ml) 4272.3 Norepinephrine Bitartrate 18 4 mg In Ns 500 ml @ Per Protocol IV CONT PRN Rx#: [id number] Ns 1,000 ml @ 100 mls/hr 1327 IV CONT BLAYNE Rx#: [id number] POTASSIUM Cl (KCl) 50 ml 100 @ 50 mls/hr IV Q1H BLAYNE Rx #:[id number] Propofol/Emulsion 100 ml 220 @ Per Protocol IV CONT BLAYNE Rx#:[id number] Vecuronium [place] 50 mg 32.3 In D5w 50 ml @ Per Protocol IV CONT BLAYNE Rx#: [id number] fentaNYL/NACL 100 ml @ 75 Per Protocol IV CONT BLAYNE Rx#:[id number] niCARdipine/NACL 200 ml @ 200 Per Protocol IV CONT PRN Rx#:[id number] Output: Urine (ml) 2375 900 Catheter 2350 900 OG Tube Output (ml) 300 Large Bore (>12 Arabic) 300 Non-weighted Oral Other: Weight 63.7 kg 63.7 kg Number of Voids 1 Result Diagrams: 06/01/18 06:20 06/01/18 11:30 Cardiac Labs: Cardiac Lab Results (72 Hrs) 06/01/18 06:20 Troponin I 0.086 H Telemetry: normal sinus rhythm Echocardiogram: normal LVEF - Physical Exam Constitutional: WDWN, healthy appearing, no apparent distress Ears, Nose, Mouth, Throat: moist mucous membranes Cardiovascular: regular rate and rhythm, no murmurs, no rubs, no gallops Peripheral Pulses: 2+: dorsalis-pedis (R), dorsalis-pedis (L) Respiratory: clear to auscultate bilat Gastrointestinal: normoactive bowel sounds Skin: no edema Neurologic: paresis Psychiatric: other (intubated) ICD10 Worksheet Patient Problems: Problems Problem Status Onset Cardiac arrest Acute Unresponsive Acute
[2018-06-01 18:09] LABS: INR 1.21 (0.83-1.16); PROTIME(PATIENT) 15.5 SEC (12.0-15.0)
[2018-06-01] MEDS: D50W 25 GM/50 ML SYR IVP PRN (22:31)
[2018-06-02] MEDS: fentaNYL/NACL 100 ML IV SCH (00:33)
[2018-06-02] MEDS: PANTOPRAZOLE SODIUM 40 MG VIAL IVP SCH ×5 (00:33→23:40)
[2018-06-02] MEDS: PROPOFOL/EMULSION 100 ML IV SCH ×4 (01:40→15:37)
[2018-06-02] MEDS: D50W 25 GM/50 ML SYR IVP PRN (02:26)
[2018-06-02] MEDS: NS 1,000 ML IV SCH ×2 (05:52→15:40)
[2018-06-02 06:40] LABS: INR 1.22 (0.83-1.16); PROTIME(PATIENT) 15.6 SEC (12.0-15.0)
--- NOTE | 2018-06-02 08:52 | PDINTPN ---
Ear Nose And Throat Specialist Progress Note Assessment/Plan: Assessment/plan: * Status post cardiac arrest-chest compressions begun to be in the field. AED fired once. Download from a AED reveals. Cardiac catheterization and echocardiogram were negative. * HACA protocol-difficulty rewarming -check TSH -change at heating unit -add external warming * Acute respiratory failure secondary to above. Stable on mechanical ventilation with minimal oxygen requirements. * Sedation-adequate * Paralytic-continue until patient warm * GI bleed-likely gastritis -follow H&H closely and transfuse appropriately -hold GI consult for now * Nutrition- on hold * Hypokalemia * Elevated liver function tests Subjective: Sedated and paralyzed Objective: Vital Signs Temp Pulse Resp BP Pulse Ox 33.8 C L 66 14 133/89 H 100 06/02/18 08:00 06/02/18 08:00 06/02/18 08:00 06/02/18 08:00 06/02/18 08:00 Laboratory Results 06/02/18 06:20 06/02/18 06:20 06/01/18 06/02/18 06/03/18 05:59 05:59 05:59 Intake Total 4372.3 3195.4 Output Total 2675 2050 60 Balance 1697.3 1145.4 -60 PT 15.6 SEC (12.0-15.0) H 06/02/18 06:20 INR 1.22 (0.83-1.16) H 06/02/18 06:20 Laboratory Results 06/02/18 06:20 06/02/18 06:20 06/02/18 06/02/18 06/02/18 06:20 06:20 06:20 PT 15.6 SEC H SEC (12.0 - 15.0) INR 1.22 H (0.83 - 1.16) APTT 42.5 SEC H SEC (23.0 - 38.0) Patient Temperature 34.2 DEGREES DEGREES pCO2 31 mmHg L mmHg (34 - 38) pO2 161 mmHg H mmHg (65 - 75) Total CO2 21 mEq/L L mEq/L (23 - 27) ABG pH 7.40 (7.35 - 7.45) ABG PO2/FiO2 Ratio 403 RATIO RATIO ABG HCO3 20 mEq/L L mEq/L (22 - 26) ABG O2 Saturation 99 % H % (92 - 95) ABG Base Excess -4.4 mEq/L L mEq/L (-2.5 - 2.5) ABG Lactic Acid 0.7 mmol/L mmol/L (0.5 - 1.6) O2 Concentration % 40 % % Respiration Rate 14 Set Respiration Rate 14 Tidal Volume 500 End Tidal CO2 39 PEEP 5 Calcium 8.4 mg/dL L mg/dL (8.5 - 10.4) Ionized Calcium 1.21 MMOL/L MMOL/L (1.12 - 1.30) Magnesium 1.8 mg/dL mg/dL (1.6 - 2.3) Total Bilirubin 0.5 mg/dL mg/dL (0.1 - 1.4) AST 54 IU/L IU/L (17 - 59) ALT 92 IU/L H IU/L (21 - 72) Alkaline Phosphatase 60 IU/L IU/L (38 - 126) Total Protein 5.2 g/dL L g/dL (6.3 - 8.2) Albumin 3.0 g/dL L g/dL (3.5 - 5.0) - Time Spent With Patient Time Spent With Patient: 45 min of critical care time spent with patient. Case discussed with Nursing, Respiratory therapy and Cardiology Physical Exam - Physical Exam General Appearance: other (Sedated), No alert EENT: PERRL/EOMI, ET tube Neck: supple Respiratory: chest non-tender, lungs clear, normal breath sounds Cardiac/Chest: normal peripheral pulses, regular rate, rhythm Peripheral Pulses: 2+: carotid (R), carotid (L), femoral (R), femoral (L), dorsalis-pedis (R), dorsalis-pedis (L) Abdomen: normal bowel sounds, non-tender, soft Male Genitalia: deferred Rectal: deferred Skin: normal color, warm/dry Extremities: normal inspection Neuro/Psych: No alert ICD10 Worksheet Patient Problems: Problems Problem Status Onset Cardiac arrest Acute Unresponsive Acute
--- NOTE | 2018-06-02 12:44 | PDCARPN ---
Cardiology Progress Note Assessment/Plan: Assessment: Ventricular fibrillation cardiac arrest Plan: I spent 1 hr with the family on 2 separate occasions this morning discussing the plan. 1. Assess neurology status post rewarming and extubation, hopefully will make full recovery given immediate defibrillation 2. Etiology of ventricular fibrillation unclear. Family states that he moved here from [place] 1 month ago and was exercising aggressively including running and playing soccer, not paying attention to change in altitude. History of palpitations at age 12, workup was negative per family, no syncope at that time. Baseline ECG shows normal sinus rhythm, no ventricular pre-excitation, no stigmata of ARVD, normal QT interval. No family history of sudden cardiac . Plan on cardiac MRI prior to ICD. Will place dual-chamber ICD given history of palpitations to better differentiate atrial arrhythmias. Will also perform genetic testing for CPVT, LQTS. Do not see any role for EP study at this time. Will follow 06/02/18 12:39 Subjective: HACA rewarming, family at bedside Reviewed/Discussed With: family, hospitalist, multidisciplinary team Time Spent with Patient: greater than 35 minutes Time Spent with Patient: Greater than 35 minutes spent on this patients care, greater than 50% of time spent counseling, educating, and coordinating care regarding the above mentioned plan. Objective: Vital Signs (8 Hrs) Temp Pulse Resp BP Pulse Ox 06/02/18 12:32 35.2 C L 62 14 105/57 L 100 06/02/18 12:00 35.1 C L 63 14 103/54 L 100 06/02/18 11:48 102/54 L 06/02/18 11:00 34.6 C L 64 14 110/59 L 100 06/02/18 10:00 34.2 C L 45 L 14 131/65 H 100 06/02/18 09:05 73 15 100 06/02/18 08:00 33.8 C L 66 14 133/89 H 100 06/02/18 07:00 33.5 C L 46 L 14 131/68 H 100 06/02/18 06:00 34.1 C L 84 14 119/62 100 06/02/18 05:00 34 C L 55 L 14 112/60 100 06/02/18 04:40 53 L 14 100 Intake/Output (24 Hrs) 06/01/18 06/02/18 06/03/18 11:59 11:59 11:59 Intake Total 4372.3 3195.4 Output Total 3100 1890 Balance 1272.3 1305.4 Intake: Oral (ml) 0 IV Intake (ml) 100 IV Infused (ml) 4272.3 3195.4 Norepinephrine Bitartrate 18 37 4 mg In Ns 500 ml @ Per Protocol IV CONT PRN Rx#: [id number] Ns 1,000 ml @ 100 mls/hr 1327 2305 IV CONT BLAYNE Rx#: [id number] POTASSIUM Cl (KCl) 50 ml 100 300 @ 50 mls/hr IV Q1H BLAYNE Rx #:[id number] Propofol/Emulsion 100 ml 220 370 @ Per Protocol IV CONT BLAYNE Rx#:[id number] Vecuronium [place] 50 mg 32.3 53 In D5w 50 ml @ Per Protocol IV CONT BLAYNE Rx#: [id number] fentaNYL/NACL 100 ml @ 75 130.4 Per Protocol IV CONT BLAYNE Rx#:[id number] niCARdipine/NACL 200 ml @ 200 Per Protocol IV CONT PRN Rx#:[id number] Output: Urine (ml) 2800 1765 Catheter 2775 1765 OG Tube Output (ml) 300 125 Large Bore (>12 Wolof) 300 125 Non-weighted Oral Other: Weight 63.7 kg Number of Voids 1 Number of Stools Catheter 1 Result Diagrams: 06/02/18 12:00 06/02/18 06:20 Cardiac Labs: Cardiac Lab Results (72 Hrs) 06/01/18 06:20 Troponin I 0.086 H Telemetry: Sinus rhythm - Physical Exam Ears, Nose, Mouth, Throat: moist mucous membranes Cardiovascular: regular rate and rhythm, no murmurs ICD10 Worksheet Patient Problems: Problems Problem Status Onset Unresponsive Acute Cardiac arrest Acute
--- NOTE | 2018-06-02 14:49 | NEUROPROG ---
Assessment: [id number] - Neurology Consult: - CC: F/U for cardiac arrest with possible anoxic brain injury - Narrative Summary: 06/01/18: Pt collapsed and became unresponsive without warning while playing soccer on 05/31/18. Witnessed event w/o any convulsions seen. Brought to [facility], intubated, and admitted to ICU and placed on HACA. Cardiology consult found no cardiac cause for symptoms. I initially saw the patient on 06/01/18. His neurologic exam showed pt to be comatose. His prior history of heart palpitations with exercise supports a probable cardiac arrhythmia leading to anoxic brain injury to explain his situation. However nonconvulsive seizures are also possible. Complete HACA protocol with rewarming tomorrow morning. If pt remains unresponsive when rewarmed we will obtain an EEG tomorrow afternoon to assess for nonconvulsive seizure. Pt currently on propofol which is an anti seizure medication. - HPI: F/U 06/02/18: Pt not yet off sedation. EEG showed no seizures and did show reaction to external stimuli which is a good prognostic sign. No events overnight. Review of outside defibrillator found pt to be in torsades de pointe which explains his presentation. It appears he only had a non-perfusing rhythm briefly so hopefully he did not have a significant anoxic brain injury. Will re-eval tomorrow. - PMHx: required heart monitor in past for palpitations with exercise but no clear cardiac history - SHx: student FHx: parents alive - ROS: Pt denied acute fever, total vision loss, active severe chest pain, respiratory failure, total body severe rash, total bowel/bladder incontinence, psychosis, active seizures, or active bleeding - Labs: 05/31/18- UTox negative 06/01/18- Na 142 - Rads: 05/31/18- Head CT: no acute changes 06/02/18- EEG: no seizures seen, evidence of reaction to external stimuli - Assessment: 1. Cardiac arrest with possible anoxic brain injury - 2. Transient nonperfusing arrhythmia: cardiology is evaluating - Plan: - No seizures seen on EEG, no seizures suspected - Neurology will continue to follow closely - 35 min spent with patient and his brother, majority of time spent counseling on prognosis and treatment plan. Objective: Vital Signs Temp Pulse Resp BP Pulse Ox 35.9 C L 62 14 132/69 H 100 06/02/18 14:26 06/02/18 14:42 06/02/18 14:00 06/02/18 14:42 06/02/18 14:00 Laboratory Results 06/02/18 12:00 06/02/18 12:00 06/01/18 06/02/18 06/03/18 05:59 05:59 05:59 Intake Total 4372.3 3195.4 Output Total 2675 2050 317 Balance 1697.3 1145.4 -317 PT 15.6 SEC (12.0-15.0) H 06/02/18 06:20 INR 1.22 (0.83-1.16) H 06/02/18 06:20 Allergies/Adverse Reactions: Sulfa (Sulfonamide Antibiotics) Allergy (Verified 06/01/18 14:21) GI Upset
[2018-06-02] MEDS ORDERED: PROTOCOL K PHOSPHATE 1 DOSE IV PRN (15:40)
[2018-06-02] MEDS ORDERED: PROTOCOL CALCIUM 1 DOSE IV PRN (15:40)
--- NOTE | 2018-06-02 15:58 | HOSPPROG ---
Hospitalist Progress Note Assessment/Plan: Healthy 22-year-old collapsed while playing soccer. Status post cardiac arrest- chest compressions began in the field almost immediately. AED fired 1 time and download from AED revealed possible torsades. # status post cardiac arrest, currently in HACA protocol. * Cardiac catheterization and echocardiogram were unremarkable * Heating unit changed over night and patient has resumed slow heating. * Patient paralyzed and sedated and till warm # acute respiratory failure secondary to above, stable on mechanical ventilation # GI bleed likely gastritis with coffee-ground emesis and black/Imuran stools noted. Given HACA protocol, likely bleed exacerbated from a platelet dysfunction * Continue PPI * Follow H&H and transfuse as needed * Consider GI consult after re warmed # nutrition: On hold # hypokalemia, can resume electrolyte protocol once patient is warmed # elevated liver function tests Subjective: Patient new to me and chart reviewed, discussed in multidisciplinary rounds. Sedated and intubated Objective: Vital Signs Temp Pulse Resp BP Pulse Ox 36.5 C 120 H 13 148/74 H 100 06/02/18 15:44 06/02/18 15:48 06/02/18 15:48 06/02/18 15:44 06/02/18 15:48 Laboratory Results 06/02/18 12:00 06/02/18 12:00 06/01/18 06/02/18 06/03/18 05:59 05:59 05:59 Intake Total 4372.3 3195.4 Output Total 2675 2050 377 Balance 1697.3 1145.4 -377 PT 15.6 SEC (12.0-15.0) H 06/02/18 06:20 INR 1.22 (0.83-1.16) H 06/02/18 06:20 - Physical Exam Constitutional: no apparent distress Eyes: PERRL (Small sluggish pupils) Ears, Nose, Mouth, Throat: other (Intubated) Cardiovascular: regular rate and rhythym, bradycardia Respiratory: no respiratory distress, clear to auscultation Gastrointestinal: soft, non-tender abdomen Genitourinary: ramirez in urethra Skin: No warm (Cool temperature 34.1) Musculoskeletal: no joint effusions Neurologic: other (Coma) Psychiatric: other (Coma) ICD10 Worksheet Patient Problems: Problems Problem Status Onset Unresponsive Acute Cardiac arrest Acute
[2018-06-02 16:39] LABS: INR 1.16 (0.83-1.16)
[2018-06-02] MEDS ORDERED: MAGNESIUM SULF 1 GM/DEXTROSE 100 ML IV ONE (16:57)
--- NOTE | 2018-06-02 17:11 | CPEEG ---
[f rep st] ELECTROENCEPHALOGRAM INPATIENT EEG. DATE OF STUDY: This is an EEG performed for 20 minutes. The posterior dominant rhythm is noted to be 10-11 hertz. There is no seizure activity noted. There are K complexes suggesting drowsiness during the study. IMPRESSION: Overall, the EEG is in normal range. No evidence of seizure activity or generalized slo wing. /[id number]/MODL
[2018-06-02] MEDS ORDERED: ACETAMINOPHEN 650 MG SUPP PR PRN (18:47)
[2018-06-02] MEDS ORDERED: ATROPINE SULFATE 1 MG/10 ML SYR ONE (22:01)
[2018-06-03 00:28] LABS: PLATELET COUNT 203 10^3/uL (150-400)
[2018-06-03] MEDS: D50W 25 GM/50 ML SYR IVP PRN ×2 (00:29→06:10)
[2018-06-03] MEDS: POTASSIUM Cl (KCl) 100 ML IV SCH ×4 (01:21→16:04)
[2018-06-03] MEDS: NS 1,000 ML IV SCH ×2 (04:00→13:39)
[2018-06-03 06:01] LABS: PLATELET COUNT 217 10^3/uL (150-400)
[2018-06-03] MEDS: PANTOPRAZOLE SODIUM 40 MG VIAL IVP SCH (06:04)
[2018-06-03 06:10] LABS: INR 1.37 (0.83-1.16)
[2018-06-03] MEDS ORDERED: MAGNESIUM SULF 1 GM/DEXTROSE 100 ML IV ONE (06:48)
[2018-06-03] MEDS ORDERED: CALCIUM GLUCONATE 50 ML IV ONE (06:48)
[2018-06-03] MEDS: ACETAMINOPHEN 325 MG TAB PO PRN ×3 (08:01→21:41)
--- NOTE | 2018-06-03 09:22 | PDINTPN ---
Impress Associate Progress Note Assessment/Plan: Assessment/plan: * Status post cardiac arrest-chest compressions begun to be in the field. AED fired once. Download from a AED reveals. Cardiac catheterization and echocardiogram were negative. * HACA protocol-discontinued * Acute respiratory failure secondary to above. Stable off mechanical ventilation -wean FiO2 as tolerated * Sedation-discontinued * Paralytic-discontinued * GI bleed-likely gastritis -H&H stable * Mental status-awake, alert and following commands. Somewhat sluggish. * Nutrition- on hold * Hypokalemia * Elevated liver function tests * Fever-unclear source her etiology. WBC count up. -chest x-ray pending -blood cultures pending * PT/OT * Speech to see * Out of bed to chair Subjective: Awake and alert. Somewhat slow to respond. Following commands. Objective: Vital Signs Temp Pulse Resp BP Pulse Ox 38.6 C H 94 24 H 120/65 92 06/03/18 08:00 06/03/18 08:00 06/03/18 08:00 06/03/18 08:00 06/03/18 08:00 Laboratory Results 06/03/18 05:50 06/03/18 05:50 06/02/18 06/03/18 06/04/18 05:59 05:59 05:59 Intake Total 3195.4 3086 360 Output Total 2050 3127 Balance 1145.4 -41 360 PT 17.0 SEC (12.0-15.0) H 06/03/18 05:50 INR 1.37 (0.83-1.16) H 06/03/18 05:50 Laboratory Results 06/03/18 05:50 06/03/18 05:50 06/03/18 06/03/18 06/03/18 05:50 05:50 05:50 PT 17.0 SEC H SEC (12.0 - 15.0) INR 1.37 H (0.83 - 1.16) APTT 39.5 SEC H SEC (23.0 - 38.0) Ionized Calcium 1.12 MMOL/L MMOL/L (1.12 - 1.30) Phosphorus 4.1 mg/dL mg/dL (2.5 - 4.5) Magnesium 1.8 mg/dL mg/dL (1.6 - 2.3) Total Bilirubin AST TSH 06/02/18 06/02/18 06:20 00:30 PT INR APTT Ionized Calcium Phosphorus Magnesium Total Bilirubin 0.6 mg/dL mg/dL (0.1 - 1.4) AST 58 IU/L IU/L (17 - 59) TSH 6.070 uIU/mL H uIU/mL (0.465 - 4.680) Chest x-ray pending - Time Spent With Patient Time Spent With Patient: 35 min of time spent with patient, over 1/2 involved with coordination of care or counseling. Case discussed with Nursing and hospitalist Physical Exam - Physical Exam General Appearance: alert EENT: PERRL/EOMI Neck: non-tender, full range of motion, supple, normal inspection Respiratory: chest non-tender, lungs clear, normal breath sounds Cardiac/Chest: normal peripheral pulses, regular rate, rhythm Abdomen: normal bowel sounds, non-tender, soft Male Genitalia: deferred Rectal: deferred Skin: normal color, warm/dry Extremities: normal range of motion, non-tender, normal inspection, normal capillary refill Neuro/Psych: alert ICD10 Worksheet Patient Problems: Problems Problem Status Onset Cardiac arrest Acute Unresponsive Acute
--- NOTE | 2018-06-03 09:24 | PDCARPN ---
Cardiology Progress Note Assessment/Plan: Assessment: Ventricular fibrillation cardiac arrest Fever Plan: 1. ICD when afebrile 2. Will follow 06/03/18 09:24 Subjective: Extubated, awake, confused and amnestic to the events surrounding cardiac arrest. Family in room. Reviewed/Discussed With: hospitalist, multidisciplinary team Time Spent with Patient: greater than 25 minutes Time Spent with Patient: Greater than 25 minutes spent on this patients care, greater than 50% of time spent counseling, educating, and coordinating care regarding the above mentioned plan. Objective: Vital Signs (8 Hrs) Temp Pulse Resp BP Pulse Ox 06/03/18 08:00 38.6 C H 94 24 H 120/65 92 06/03/18 07:00 38.8 C H 102 H 26 H 121/73 H 93 06/03/18 06:00 96 22 H 120/69 92 06/03/18 05:00 98 26 H 116/65 92 06/03/18 04:00 38.5 C H 99 22 H 116/48 L 92 06/03/18 03:00 100 26 H 97/41 L 91 L 06/03/18 02:00 38.6 C H 102 H 27 H 112/66 92 Intake/Output (24 Hrs) 06/01/18 06/02/18 06/03/18 11:59 11:59 11:59 Intake Total 4372.3 3195.4 3446 Output Total 3100 1890 2862 Balance 1272.3 1305.4 584 Intake: Oral (ml) 0 460 IV Intake (ml) 100 IV Infused (ml) 4272.3 3195.4 2986 Norepinephrine Bitartrate 18 37 60 4 mg In Ns 500 ml @ Per Protocol IV CONT PRN Rx#: [id number] Ns 1,000 ml @ 100 mls/hr 1327 2305 2613 IV CONT BLAYNE Rx#: [id number] POTASSIUM Cl (KCl) 50 ml 100 300 @ 50 mls/hr IV Q1H BLAYNE Rx #:[id number] Propofol/Emulsion 100 ml 220 370 200 @ Per Protocol IV CONT BLAYNE Rx#:[id number] Vecuronium [place] 50 mg 32.3 53 23 In D5w 50 ml @ Per Protocol IV CONT BLAYNE Rx#: [id number] fentaNYL/NACL 100 ml @ 75 130.4 90 Per Protocol IV CONT BLAYNE Rx#:[id number] niCARdipine/NACL 200 ml @ 200 Per Protocol IV CONT PRN Rx#:[id number] Output: Urine (ml) 2800 1765 2762 Catheter 2775 1765 2762 OG Tube Output (ml) 300 125 100 Large Bore (>12 Spanish) 300 125 100 Non-weighted Oral Other: Weight 63.7 kg Number of Voids 1 Number of Stools Catheter 1 Result Diagrams: 06/03/18 05:50 06/03/18 05:50 Cardiac Labs: Cardiac Lab Results (72 Hrs) 06/01/18 06:20 Troponin I 0.086 H Telemetry: Sinus rhythm ICD10 Worksheet Patient Problems: Problems Problem Status Onset Unresponsive Acute Cardiac arrest Acute
--- NOTE | 2018-06-03 11:37 | NEUROPROG ---
Assessment: [id number] - Neurology Consult: - CC: F/U for cardiac arrest - Narrative Summary: 06/01/18: Pt collapsed and became unresponsive without warning while playing soccer on 05/31/18. Witnessed event w/o any convulsions seen. Brought to [facility], intubated, and admitted to ICU and placed on HACA. Cardiology consult found no cardiac cause for symptoms. I initially saw the patient on 06/01/18. His neurologic exam showed pt to be comatose. His prior history of heart palpitations with exercise supports a probable cardiac arrhythmia leading to anoxic brain injury to explain his situation. However nonconvulsive seizures are also possible. Complete HACA protocol with rewarming tomorrow morning. If pt remains unresponsive when rewarmed we will obtain an EEG tomorrow afternoon to assess for nonconvulsive seizure. Pt currently on propofol which is an anti seizure medication. - F/U 06/02/18: Pt not yet off sedation. EEG showed no seizures and did show reaction to external stimuli which is a good prognostic sign. No events overnight. Review of outside defibrillator found pt to be in torsades de pointe which explains his presentation. It appears he only had a non-perfusing rhythm briefly so hopefully he did not have a significant anoxic brain injury. Will re-eval tomorrow. - HPI: F/U 06/03/18: No new complaints. Pt extubated and awake. No focal neuro deficits. - PMHx: required heart monitor in past for palpitations with exercise but no clear cardiac history - SHx: student FHx: parents alive - ROS: Pt denied acute fever, total vision loss, active severe chest pain, respiratory failure, total body severe rash, total bowel/bladder incontinence, psychosis, active seizures, or active bleeding - Labs: 05/31/18- UTox negative 06/01/18- Na 142 - Rads: 05/31/18- Head CT: no acute changes 06/02/18- EEG: no seizures seen, evidence of reaction to external stimuli - Assessment: 1. Cardiac arrest - 2. Transient nonperfusing arrhythmia: cardiology is evaluating - Plan: - No seizures seen on EEG, no seizures suspected - Prognosis appears good in regard to cognitive recovery - PT/OT/Speech to determine any rehab needs - Neurology will sign off - F/U in neurology clinic 4 weeks after hospital discharge - 35 min spent with patient, family, and his brother, majority of time spent counseling on prognosis and treatment plan. Objective: Vital Signs Temp Pulse Resp BP Pulse Ox 37.7 C 109 H 20 123/70 H 93 06/03/18 10:00 06/03/18 11:00 06/03/18 11:00 06/03/18 11:00 06/03/18 11:00 Laboratory Results 06/03/18 05:50 06/03/18 05:50 06/02/18 06/03/18 06/04/18 05:59 05:59 05:59 Intake Total 3195.4 3086 600 Output Total 2050 3127 Balance 1145.4 -41 600 PT 17.0 SEC (12.0-15.0) H 06/03/18 05:50 INR 1.37 (0.83-1.16) H 06/03/18 05:50 Allergies/Adverse Reactions: Sulfa (Sulfonamide Antibiotics) Allergy (Verified 06/01/18 14:21) GI Upset
--- NOTE | 2018-06-03 11:51 | HOSPPROG ---
Hospitalist Progress Note Assessment/Plan: Healthy 22-year-old collapsed while playing soccer. Status post cardiac arrest- chest compressions began in the field almost immediately. AED fired 1 time and download from AED revealed possible torsades. Status post rewarming from HACA protocol, has been febrile since rewarming however asymptomatic # status post cardiac arrest, status post HACA protocol. Extubated and patient alert * Cardiac catheterization and echocardiogram were unremarkable * Patient will need AICD per Cardiology once stable # fever: Unclear etiology workup negative so far but will continue to monitor. # acute respiratory failure secondary to above, resolved and extubated # GI bleed likely gastritis with coffee-ground emesis and black/Imuran stools noted. Given HACA protocol, likely bleed exacerbated from a platelet dysfunction * Post warming his GI bleeding has ceased. * Decreased PPI to daily dose * Monitor H and H and evidence of bleeding clinically. # nutrition: Regular diet # hypokalemia, can resume electrolyte protocol once patient is warmed # elevated liver function tests likely from cardiac arrest Subjective: Discussed the multidisciplinary rounds. Overall James feels good and has no specific complaints. He is relatively weak and cognitively slow but that is not unexpected Objective: Vital Signs Temp Pulse Resp BP Pulse Ox 37.7 C 99 22 H 123/70 H 96 06/03/18 11:37 06/03/18 11:37 06/03/18 11:37 06/03/18 11:37 06/03/18 11:37 Laboratory Results 06/03/18 05:50 06/02/18 06/03/18 06/04/18 05:59 05:59 05:59 Intake Total 3195.4 3086 600 Output Total 0 3127 Balance 1145.4 -41 600 PT 17.0 SEC (12.0-15.0) H 06/03/18 05:50 INR 1.37 (0.83-1.16) H 06/03/18 05:50 - Physical Exam Constitutional: no apparent distress Eyes: PERRL Ears, Nose, Mouth, Throat: moist mucous membranes Cardiovascular: regular rate and rhythym Respiratory: no respiratory distress, clear to auscultation, reduced air movement Gastrointestinal: soft, non-tender abdomen Genitourinary: no bladder fullness Skin: normal color Musculoskeletal: generalized weakness Neurologic: AAOx3 Psychiatric: interacting appropriately ICD10 Worksheet Patient Problems: Problems Problem Status Onset Unresponsive Acute Cardiac arrest Acute
[2018-06-03] MEDS: ENOXAPARIN 40 MG/0.4 ML SYR SC SCH (12:14)
--- NOTE | 2018-06-03 12:23 | ASMTCMCOM ---
CM Note CM Note Notes: 06/03/2018 Case Management Note Discussed pt during rounds this morning. Family present during rounds. Pt is extubated, s/p HACA protocol, alert and oriented to name and date, and advancing diet. RN reports pt is weak and cognitive processing is slow today as expected. AICD possible end of week or early next week pending pt recovery. Therapy evals are pending. Case Management d/c poc: to be determined. Case Management to follow. Date Signed: 06/03/2018 12:23 PM Electronically Signed By:Vicki Singh RN
[2018-06-03] MEDS ORDERED: CLINDAMYCIN 600 MG/DEXTROSE 50 ML IV SCH (14:00)
[2018-06-03] MEDS: AMPICILLIN/SULBACTAM 3 GM in NS 100 ML IV SCH ×2 (14:11→19:42)
[2018-06-03] MEDS ORDERED: POTASSIUM Cl (KCl) 50 ML IV ONE (14:20)
[2018-06-04] MEDS: AMPICILLIN/SULBACTAM 3 GM in NS 100 ML IV SCH ×4 (01:50→20:35)
[2018-06-04] MEDS: ACETAMINOPHEN 325 MG TAB PO PRN (05:39)
[2018-06-04 05:57] LABS: PLATELET COUNT 222 10^3/uL (150-400)
[2018-06-04] MEDS: PANTOPRAZOLE SODIUM 40 MG TAB PO SCH (08:58)
[2018-06-04] MEDS: ENOXAPARIN 40 MG/0.4 ML SYR SC SCH (08:59)
--- NOTE | 2018-06-04 10:27 | PDINTPN ---
Parts Interpreter Progress Note Assessment/Plan: 22 yo M s/p cardiac arrest now clinically improved but with possible aspiration pna # cardiac arrest # aspiration pneumonia # torsades PLAN # stop maintance IVF # continue unasyn for aspiration pna (started 06/03/18) anticipate keeping IV until after AICD placement # check procalcitonin in AM to help guide abx duration # apap as needed for fevers # possible txfr to PCU later today Imaging I personally reviewed patient's images well as formal radiology read 06/04/18 CXR with R perihilar infiltrate Subjective: Fevers yesterday, questionable right perihilar opacity. Ambulating, denies nausea vomiting, complains of mild chills, mild chest pain from CPR. No rash or leg swelling Objective: Vital Signs Temp Pulse Resp BP Pulse Ox 37.7 C 106 H 17 131/76 H 94 06/04/18 08:00 06/04/18 08:00 06/04/18 08:00 06/04/18 06:00 06/04/18 08:00 Laboratory Results 06/04/18 05:45 06/04/18 05:45 06/03/18 06/04/18 06/05/18 05:59 05:59 05:59 Intake Total 3086 3365 250 Output Total 3127 Balance -41 3365 250 PT 17.0 SEC (12.0-15.0) H 06/03/18 05:50 INR 1.37 (0.83-1.16) H 06/03/18 05:50 Physical Exam - Physical Exam General Appearance: alert, no apparent distress EENT: PERRL/EOMI, normal ENT inspection Neck: non-tender, full range of motion, supple Respiratory: chest non-tender, lungs clear, normal breath sounds Cardiac/Chest: normal peripheral pulses, regular rate, rhythm, No edema Skin: normal color, warm/dry, No cyanosis Extremities: normal range of motion, non-tender Neuro/Psych: no motor/sensory deficits, alert, normal mood/affect, oriented x 3 ICD10 Worksheet Patient Problems: Problems Problem Status Onset Cardiac arrest Acute Unresponsive Acute
[2018-06-04] MEDS ORDERED: PROTOCOL POTASSIUM 1 DOSE MISC PRN (11:06)
--- NOTE | 2018-06-04 12:27 | PDCARPN ---
Cardiology Progress Note Chief Complaint: VF arrest Assessment/Plan: Assessment: 1. Witnessed VF arrest s/p HACA with what appears to be full neuro recovery Plan: 1. Plan for [employer] dual-chamber ICD implant 06/06 (48hrs afebrile). 2. Cardiac MRI today 3. Plan for outpatient genetic testing to rule out CPVT and long QT. 4. Avoid competitive athletics and high intensity exertion >60 minutes ( discontinue ultramarathon training at this time) 5. Start Metoprolol 12.5mg BID 06/04/18 12:29 Subjective: No issues overnight, mild chest discomfort with deep breathing, no other cardiovascular symptoms. Improving memory. Reviewed/Discussed With: family, multidisciplinary team Time Spent with Patient: greater than 35 minutes (greater than 45 minutes) Time Spent with Patient: Greater than 35 minutes spent on this patients care, greater than 50% of time spent counseling, educating, and coordinating care regarding the above mentioned plan. Objective: Vital Signs (8 Hrs) Temp Pulse Resp BP Pulse Ox 06/04/18 10:00 37.3 C 92 21 H 114/73 94 06/04/18 08:00 37.7 C 106 H 17 94 06/04/18 07:45 102 H 131/76 H 93 06/04/18 06:00 37.6 C 86 19 131/76 H 94 Intake/Output (24 Hrs) 06/03/18 06/04/18 06/05/18 05:59 05:59 05:59 Intake Total 3086 3365 250 Output Total 3127 Balance -41 3365 250 Intake: Oral (ml) 100 1660 250 IV Intake (ml) 200 IV Infused (ml) 2986 1505 Norepinephrine Bitartrate 60 4 mg In Ns 500 ml @ Per Protocol IV CONT PRN Rx#: [id number] Ns 1,000 ml @ 100 mls/hr 2613 1505 IV CONT BLAYNE Rx#: [id number] Propofol/Emulsion 100 ml 200 @ Per Protocol IV CONT BLAYNE Rx#:[id number] Vecuronium [place] 50 mg 23 In D5w 50 ml @ Per Protocol IV CONT BLAYNE Rx#: [id number] fentaNYL/NACL 100 ml @ 90 Per Protocol IV CONT BLAYNE Rx#:[id number] Output: Urine (ml) 3027 Catheter 3027 OG Tube Output (ml) 100 Large Bore (>12 [place]ese) 100 Non-weighted Oral Other: Number of Voids Toilet 2 Number of Stools Catheter 1 Toilet 0 Result Diagrams: 06/04/18 05:45 06/04/18 05:45 Telemetry: NSR - Physical Exam Constitutional: WDWN, healthy appearing, no apparent distress Ears, Nose, Mouth, Throat: moist mucous membranes, no oral ulcers, no thrush Cardiovascular: regular rate and rhythm, no murmurs, no rubs, no gallops Peripheral Pulses: 2+: dorsalis-pedis (R), dorsalis-pedis (L) Neurologic: AAOx3, CN II-XII grossly intact Psychiatric: cooperative, interactive, following commands, not anxious ICD10 Worksheet Patient Problems: Problems Problem Status Onset Cardiac arrest Acute Unresponsive Acute
--- NOTE | 2018-06-04 12:48 | HOSPPROG ---
Hospitalist Progress Note Assessment/Plan: Healthy 22-year-old collapsed while playing soccer. Status post cardiac arrest- chest compressions began in the field almost immediately. AED fired 1 time and download from AED revealed possible torsades. Status post rewarming from HACA protocol, has been febrile since rewarming however asymptomatic # status post cardiac arrest, status post HACA protocol. Extubated and patient alert * Cardiac catheterization and echocardiogram were unremarkable * Patient will need AICD per Cardiology once stable # fever: Likely secondary to pneumonia noted on chest x-ray. I suspect this is aspiration and he is currently on Unasyn * Would like to consider IV antibiotics since patient will be getting an AICD placed in the next couple days to make sure there is no evidence of infection. * Wants AICD placed in patient improving can transition to oral antibiotics would only need 5-7 days. # acute respiratory failure secondary to above, resolved and extubated # GI bleed likely gastritis with coffee-ground emesis and black/Imuran stools noted. Given HACA protocol, likely bleed exacerbated from a platelet dysfunction * Post warming his GI bleeding has ceased. * Discontinue PPI, patient is stable with normal bowel movements no evidence of ongoing bleeding # nutrition: Regular diet # hypokalemia, can resume electrolyte protocol once patient is warmed # elevated liver function tests likely from cardiac arrest Subjective: Discussed in multidisciplinary rounds and with Dr. Baugh. Patient overall doing well Objective: Vital Signs Temp Pulse Resp BP Pulse Ox 37.3 C 92 21 H 114/73 94 06/04/18 10:00 06/04/18 10:00 06/04/18 10:00 06/04/18 10:00 06/04/18 10:00 Laboratory Results 06/04/18 05:45 06/04/18 05:45 06/03/18 06/04/18 06/05/18 05:59 05:59 05:59 Intake Total 3086 3365 250 Output Total 3127 Balance -41 3365 250 PT 17.0 SEC (12.0-15.0) H 06/03/18 05:50 INR 1.37 (0.83-1.16) H 06/03/18 05:50 - Physical Exam Constitutional: no apparent distress Eyes: PERRL Cardiovascular: regular rate and rhythym Respiratory: no respiratory distress, clear to auscultation Gastrointestinal: normoactive bowel sounds Genitourinary: no bladder fullness Skin: warm Neurologic: AAOx3 Psychiatric: interacting appropriately ICD10 Worksheet Patient Problems: Problems Problem Status Onset Unresponsive Acute Cardiac arrest Acute
--- NOTE | 2018-06-04 13:50 | ASMTCMCOM ---
CM Note CM Note Notes: Financial counseling reports that pt is currently Self-pay. Pt was referred to [facility]. Pts care discussed in rounds, pt is scheduled for AICD with Dr Baugh maybe Monday, per family. CM to follow if needs arise. Plan: Independent Date Signed: 06/04/2018 01:50 PM Electronically Signed By:JIGNESH Morales
[2018-06-04] MEDS ORDERED: GADOBUTROL 10 ML VIAL IVP ONE (14:17)
[2018-06-04] MEDS: METOPROLOL TARTRATE 25 MG TAB PO SCH (20:35)
[2018-06-05] MEDS: BENZONATATE 100 MG CAP PO PRN ×3 (00:01→20:14)
[2018-06-05] MEDS: ACETAMINOPHEN 325 MG TAB PO PRN (00:01)
[2018-06-05] MEDS: GUAIFENESIN/DM 10 ML UDCUP PO PRN ×3 (00:01→20:14)
[2018-06-05] MEDS: AMPICILLIN/SULBACTAM 3 GM in NS 100 ML IV SCH ×4 (02:50→20:08)
[2018-06-05] MEDS: ENOXAPARIN 40 MG/0.4 ML SYR SC SCH (09:20)
[2018-06-05] MEDS: METOPROLOL TARTRATE 25 MG TAB PO SCH ×2 (09:21→20:08)
[2018-06-05] MEDS: PANTOPRAZOLE SODIUM 40 MG TAB PO SCH (09:21)
--- NOTE | 2018-06-05 10:03 | PDCARPN ---
Cardiology Progress Note Chief Complaint: VF arrest Assessment/Plan: Assessment: 1. Witnessed VF arrest s/p HACA with what appears to be full neuro recovery. Cardiac MRI was unremarkable. Plan: 1. Plan for [employer] dual-chamber ICD implant tomorrow, 06/06 (48hrs afebrile). 2. Plan for outpatient genetic testing to rule out CPVT and long QT. 3. Avoid competitive athletics and high intensity exertion >60 minutes ( discontinue ultramarathon training at this time) 4. Continue Metoprolol 12.5mg BID 06/05/18 10:01 Subjective: No issues overnight. No cardiovascular symptoms. Reviewed/Discussed With: multidisciplinary team Time Spent with Patient: greater than 25 minutes Time Spent with Patient: Greater than 25 minutes spent on this patients care, greater than 50% of time spent counseling, educating, and coordinating care regarding the above mentioned plan. Objective: Vital Signs (8 Hrs) Temp Pulse Resp BP Pulse Ox 06/05/18 07:25 36.7 C 79 16 114/77 96 06/05/18 04:00 36.7 C 71 19 106/58 L 96 Intake/Output (24 Hrs) 06/04/18 06/05/18 06/06/18 05:59 05:59 05:59 Intake Total 3365 1350 Balance 3365 1350 Intake: Oral (ml) 1660 1150 IV Intake (ml) 200 IV Infused (ml) 1505 200 Ampicillin/Sulbactam 3 gm 200 In Ns 100 ml @ 200 mls/ hr IV Q6H [facility] Rx#: [id number] Ns 1,000 ml @ 100 mls/hr 1505 IV CONT [facility] Rx#: [id number] Other: Intake Quantity Yes Sufficient Number of Voids Toilet 2 2 Number of Stools Toilet 0 Result Diagrams: 06/04/18 05:45 06/05/18 03:20 Telemetry: NSR overnight - Physical Exam Constitutional: WDWN, healthy appearing, no apparent distress Ears, Nose, Mouth, Throat: moist mucous membranes, no oral ulcers, no thrush Cardiovascular: regular rate and rhythm, no murmurs, no rubs, no gallops Peripheral Pulses: 2+: dorsalis-pedis (R), dorsalis-pedis (L) Respiratory: clear to auscultate bilat, no crackles, no wheezes Gastrointestinal: normoactive bowel sounds, no tenderness, no masses Skin: no rashes, no abrasions, no ulcers, warm, no edema Neurologic: AAOx3, CN II-XII grossly intact Psychiatric: cooperative, interactive, following commands, not anxious ICD10 Worksheet Patient Problems: Problems Problem Status Onset Cardiac arrest Acute Unresponsive Acute
--- NOTE | 2018-06-05 16:55 | HOSPPROG ---
Hospitalist Progress Note Assessment/Plan: Healthy 22-year-old collapsed while playing soccer. Status post cardiac arrest- chest compressions began in the field almost immediately. AED fired 1 time and download from AED revealed possible torsades. Status post rewarming from HACA protocol, has been febrile since rewarming however asymptomatic status post cardiac arrest, status post HACA protocol. Extubated and patient alert * Cardiac catheterization and echocardiogram were unremarkable * AICD per Cardiology appears to have ahd an excellent neurologic outcome fever: Likely secondary to pneumonia noted on chest x-ray. I suspect this is aspiration and he is currently on Unasyn * IV antibiotics since patient will be getting an AICD placed in the next couple days to make sure there is no evidence of infection. acute respiratory failure: resolved GI bleed likely gastritis with coffee-ground emesis and black stools noted. Given HACA protocol, likely bleed exacerbated from a platelet dysfunction * Post warming his GI bleeding has ceased. * Discontinue PPI, patient is stable with normal bowel movements no evidence of ongoing bleeding nutrition: Regular diet hypokalemia, can resume electrolyte protocol once patient is warmed elevated liver function tests likely from cardiac arrest Subjective: case d/w dr vasques Objective: Vital Signs Temp Pulse Resp BP Pulse Ox 36.7 C 80 16 125/81 H 94 06/05/18 16:00 06/05/18 16:00 06/05/18 16:00 06/05/18 16:00 06/05/18 16:00 Laboratory Results 06/04/18 05:45 06/05/18 03:20 06/04/18 06/05/18 06/06/18 05:59 05:59 05:59 Intake Total 3365 1350 Balance 3365 1350 PT 17.0 SEC (12.0-15.0) H 06/03/18 05:50 INR 1.37 (0.83-1.16) H 06/03/18 05:50 - Physical Exam Constitutional: no apparent distress, appears nourished Eyes: PERRL, anicteric sclera Ears, Nose, Mouth, Throat: moist mucous membranes, hearing normal Cardiovascular: regular rate and rhythym, no murmur, rub, or gallop Respiratory: no respiratory distress, no rales or rhonchi Gastrointestinal: normoactive bowel sounds, soft, non-tender abdomen Genitourinary: no bladder fullness, No ramirez in urethra Skin: warm, normal color Musculoskeletal: full muscle strength ICD10 Worksheet Patient Problems: Problems Problem Status Onset Cardiac arrest Acute Unresponsive Acute
[2018-06-05] MEDS ORDERED: LACTULOSE 20 GM/30 ML UDCUP PO PRN (19:27)
[2018-06-05] MEDS ORDERED: BISACODYL 10 MG SUPP PR PRN (19:27)
[2018-06-05] MEDS ORDERED: POLYETHYLENE GLYCOL 3350 17 GM PKT PO PRN (19:27)
[2018-06-05] MEDS ORDERED: MAGNESIUM HYDROXIDE 30 ML UDCUP PO PRN (19:27)
[2018-06-05] MEDS: SENNOSIDES/DOCUSATE SODIUM TAB PO SCH (20:08)
[2018-06-06] MEDS: AMPICILLIN/SULBACTAM 3 GM in NS 100 ML IV SCH ×4 (03:06→21:03)
[2018-06-06 05:00] LABS: PLATELET COUNT 273 10^3/uL (150-400)
[2018-06-06 05:03] LABS: INR 0.98 (0.83-1.16); PROTIME(PATIENT) 13.2 SEC (12.0-15.0)
[2018-06-06] MEDS: SENNOSIDES/DOCUSATE SODIUM TAB PO SCH ×2 (08:49→21:07)
[2018-06-06] MEDS: METOPROLOL TARTRATE 25 MG TAB PO SCH ×2 (08:50→21:04)
[2018-06-06] MEDS: PANTOPRAZOLE SODIUM 40 MG TAB PO SCH (08:50)
--- NOTE | 2018-06-06 09:25 | PDGENHP ---
History & Physical Chief Complaint: s/p VF arrest History of Present Illness: VF arrest while playing soccer, unclear etiology. Normal cardiac MRI. History of exertional palpitations as a teenager Relevant Physical Exam: General: A&Ox4, no apparent distress. Lungs: Slightly diminished breath sounds. Cardiac: Regular rate and rhythm, S1, S2 Cardiorespiratory Assessment: Proceed with implant of [employer] dual-chamber ICD today. Plan for outpatient genetic testing for further evaluation of VF arrest.
--- NOTE | 2018-06-06 10:01 | PDCARPN ---
Cardiology Progress Note Chief Complaint: s/p VF arrest Assessment/Plan: Assessment: 1. Witnessed VF arrest s/p HACA and rewarming with what appears to be full neuro recovery. Cardiac MRI was unremarkable. 2. Pneumonia - on Unasyn Plan: 1. Plan for [employer] dual-chamber ICD implant today 2. Plan for outpatient genetic testing to rule out CPVT and long QT. 3. Avoid competitive athletics and high intensity exertion >60 minutes ( discontinue ultramarathon training at this time) 4. Continue Metoprolol 12.5mg BID 5. EP will continue to follow 06/06/18 09:59 Subjective: No issues overnight, no cardiovascular symptoms Reviewed/Discussed With: multidisciplinary team Time Spent with Patient: greater than 25 minutes Time Spent with Patient: Greater than 25 minutes spent on this patients care, greater than 50% of time spent counseling, educating, and coordinating care regarding the above mentioned plan. Objective: Vital Signs (8 Hrs) Temp Pulse Resp BP Pulse Ox 06/06/18 08:00 36.8 C 63 19 136/70 H 97 06/06/18 04:00 36.9 C 72 20 105/67 96 Intake/Output (24 Hrs) 06/05/18 06/06/18 06/07/18 05:59 05:59 05:59 Intake Total 1350 1770 0 Balance 1350 1770 0 Intake: Oral (ml) 1150 1550 IV Intake (ml) 0 IV Infused (ml) 200 220 Ampicillin/Sulbactam 3 gm 200 220 In Ns 100 ml @ 200 mls/ hr IV Q6H [facility] Rx#: [id number] Other: Intake Quantity Yes Sufficient Number of Voids Toilet 2 Result Diagrams: 06/06/18 03:32 06/06/18 03:32 Telemetry: NSR - Physical Exam Constitutional: WDWN, healthy appearing, no apparent distress Ears, Nose, Mouth, Throat: moist mucous membranes, no oral ulcers, no thrush Cardiovascular: regular rate and rhythm, no murmurs, no rubs, no gallops Peripheral Pulses: 2+: dorsalis-pedis (R), dorsalis-pedis (L) Respiratory: clear to auscultate bilat, no crackles, no wheezes Gastrointestinal: normoactive bowel sounds, no tenderness, no masses Neurologic: AAOx3, CN II-XII grossly intact Psychiatric: cooperative, interactive, following commands, not anxious ICD10 Worksheet Patient Problems: Problems Problem Status Onset Cardiac arrest Acute Unresponsive Acute
[2018-06-06] MEDS ORDERED: BACITRACIN IRRIGATION/NS 50,000 UNITS/1,000 ML BTL IRR ONE (11:00)
[2018-06-06] MEDS ORDERED: ceFAZolin 2 GM/DEXTROSE 100 ML IV ONE (11:00)
[2018-06-06] MEDS ORDERED: NS 1,000 ML IV ONE (11:00)
[2018-06-06] MEDS ORDERED: LIDOCAINE 1% 300 MG/30 ML SDV ONE (12:34)
[2018-06-06] MEDS ORDERED: BUPIVACAINE 0.75% 10 ML SDV ONE (12:34)
[2018-06-06] MEDS ORDERED: IOPAMIDOL (ISOVUE-300) 100 ML BTL ONE (12:34)
--- NOTE | 2018-06-06 12:37 | PDANEPAE ---
ANE Past Medical History - Cardiovascular History Hx Arrhythmias: Yes - Pulmonary History Hx Oxygen in Use at Home: No Hx Sleep Apnea: No - Endocrine History Hx Diabetes: No Hypothyroid: No Hyperthyroid: No Obesity: no - Chronic Pain History Chronic Pain: No ANE Review of Systems Review of Systems: ANE Patient History - Allergies Allergies/Adverse Reactions: Sulfa (Sulfonamide Antibiotics) Allergy (Verified 06/01/18 14:21) GI Upset - Home Medications Home Medications: NK [No Known Home Meds] 05/31/18 [Last Taken Unknown] - Smoking Hx Smoking Status: Unknown if ever smoked ANE Labs/Vital Signs - Labs Result Diagrams: 06/06/18 03:32 06/06/18 03:32 - Vital Signs Blood Pressure: 136/70 Heart Rate: 63 Respiratory Rate: 19 O2 Sat (%): 97 Height: 177.8 cm Weight: 63.7 kg ANE Physical Exam - Airway Neck exam: FROM Mallampati Score: Class 1 Mouth exam: normal dental/mouth exam - Pulmonary Pulmonary: no respiratory distress - Cardiovascular Cardiovascular: regular rate and rhythym - ASA Status ASA Status: II ANE Anesthesia Plan Anesthesia Plan: GA w LMA
[2018-06-06] MEDS ORDERED: fentaNYL 100 MCG/2 ML INJ ONE ×2 (13:00→13:16)
[2018-06-06] MEDS ORDERED: LIDOCAINE 2% 5 ML SDV ONE (13:00)
[2018-06-06] MEDS ORDERED: PROPOFOL 200 MG/20 ML VIAL ONE ×3 (13:01→13:17)
[2018-06-06] MEDS ORDERED: MIDAZOLAM 2 MG/2 ML VIAL ONE (13:02)
[2018-06-06] MEDS ORDERED: PHENYLEPHRINE HCL 100 MCG/ML SYR ONE (13:40)
[2018-06-06] MEDS ORDERED: ONDANSETRON 4 MG/2 ML VIAL ONE (13:40)
[2018-06-06] MEDS ORDERED: DEXAMETHASONE 4 MG/ML VIAL ONE (13:40)
--- NOTE | 2018-06-06 14:20 | POSTANESTH ---
Post Anesthetic Evaluation Cardiovascular Status: Normal, Stable Respiratory Status: Normal, Stable Level of Consciousness/Mental Status: Mildly Sleepy, Arousable Pain Control: Adequate, Prn Tx Ordered Nausea/Vomiting Control: Adequate, Prn Tx Ordered Complications Possibly Related to Anesthesia: None Noted
--- NOTE | 2018-06-06 14:33 | EPPROC ---
Electrophysiology Procedure Note: PROCEDURE PERFORMED: 1. Implantation of an A-V Implantable Cardioverter Defibrillator 2. Subclavian vein angiography 3. Fluoroscopy 4. EP study induction of ventricular fibrillation and defibrillation testing INDICATION: Cardiac arrest (torsades/coarse VF with exercise) PROCEDURE NOTE: Patient presented to the cardiac catherization laboratory in a fasting, postabsorptive state. The L infraclavicular area was prepped and draped in the usual sterile fashion. Dr. Hernandez administered LMA. Lidocaine plus bupivacaine was used for local anesthesia. L subclavian venography was performed by injection of iodinated contrast into the L antecubital vein. This was done to assure patency of the vein and also to assess for any anatomical aberrations. Using a combination of blunt and sharp dissection and electrocautery, the dissection was carried down to the prepectoral fascia. A pocket was made in this anatomical plane. All bleeding was controlled with electrocautery. The pocket was packed with gauze soaked in antibiotic solution. Fluoroscopy was utilized during the entire procedure for venous access and placement of the leads. Using a direct stick technique the L extrathoracic axillary vein was accessed with 2 sticks using the modified Seldinger technique. Placement of the guide wires into the venous system was confirmed by low pressure blood return and also by visualizing the guide wires advancing into the inferior vena cava. A purse string suture was applied around the guide wires. #7 Fr and #6 Fr sheaths were advanced under fluoroscopic guidance over the guide wires. An active fixation ventricular ICD lead was advanced into the right ventricular apex and screwed in place. An active fixation atrial lead was advanced into the right atrial appendage and screwed in place. The peel away sheaths were removed. Pacing thresholds, sensing parameters and leads impedances were measured. There was no diaphragmatic stimulation at maximum output. The leads were sutured to the prepectoral fascia with 3 non-absorbable sutures. The gauze packing was removed from the ICD pocket. The pocket was again inspected for any bleeding. The leads were attached to the ICD securely. The ICD was inserted into the pocket and secured in place with a nonabsorbable suture. Fluoroscopy was performed in [place] and [place] planes to verify right sided placement of the leads. Also fluoroscopy of the ICD pocket was performed. Defibrillation testing was performed. The ICD pocket was closed in 3 layers with absorbable monocryl sutures and rolf. Appropriate dressing was applied. The patient left the cardiac catheterization laboratory in stable condition. Serial Numbers: 1. Device SJM Ellipse DR 2411-36Q ICD ([facility]) SN [id number] 2. Atrial Lead SJM Tendril STS 2088TC 46 SN [id number] 3. Ventricular Lead SJM Durata 7122 Q 52 SN [id number] Stimulation Thresholds & Impedance Measurements: 1. Atrial Lead P 7.2 mV 0.3 V 0.5 ms 0.6 mA 2. Ventricular Lead R 10 mV 0.5 v 0.5 ms 1 mA Defibrillation testing: Ventricular fibrillation was induced by T-shock. The device sensed the ventricular fibrillation appropriately at minimum ventricular sensitivity (1.2 mV). A single DC shock of 15 Joule converted the ventricular fibrillation to sinus rhythm. Ventricular sensitivity was permanent programmed to 0.3 mV. Pacing Parameters: 1. Pacing mode DDD 2. Lower rate 40 ppm 3. Upper tracking rate 160ppm Tachycardia therapy parameters: VF zone: Detection 200 bpm ATP while charging, 26 J, 36 J VT zone: Detection 180 bpm Monitor only Patient Problems: Problems Problem Status Onset Unresponsive Acute Cardiac arrest Acute
--- NOTE | 2018-06-06 16:01 | HOSPPROG ---
Hospitalist Progress Note Assessment/Plan: Healthy 22-year-old collapsed while playing soccer. Status post cardiac arrest- chest compressions began in the field almost immediately. AED fired 1 time and download from AED revealed possible torsades. Status post rewarming from HACA protocol, has been febrile since rewarming however asymptomatic status post cardiac arrest, status post HACA protocol. Extubated and patient alert * Cardiac catheterization and echocardiogram were unremarkable * AICD today appears to have ahd an excellent neurologic outcome fever: aspiration pneumonia day 4/ abx acute respiratory failure: resolved GI bleed likely gastritis with coffee-ground emesis and black stools noted. Given HACA protocol, likely bleed exacerbated from a platelet dysfunction * Post warming his GI bleeding has ceased. * Discontinue PPI, patient is stable with normal bowel movements no evidence of ongoing bleeding nutrition: Regular diet hypokalemia, can resume electrolyte protocol once patient is warmed elevated liver function tests likely from cardiac arrest Subjective: s/p AICD Objective: Vital Signs Temp Pulse Resp BP Pulse Ox 36.8 C 63 19 136/70 H 97 06/06/18 08:00 06/06/18 12:37 06/06/18 12:37 06/06/18 12:37 06/06/18 12:37 Laboratory Results 06/06/18 03:32 06/06/18 03:32 06/05/18 06/06/18 06/07/18 05:59 05:59 05:59 Intake Total 1350 1770 0 Balance 1350 1770 0 PT 13.2 SEC (12.0-15.0) 06/06/18 03:32 INR 0.98 (0.83-1.16) 06/06/18 03:32 - Physical Exam Constitutional: no apparent distress, appears nourished Eyes: PERRL, anicteric sclera Ears, Nose, Mouth, Throat: moist mucous membranes, hearing normal Cardiovascular: regular rate and rhythym, no murmur, rub, or gallop Respiratory: no respiratory distress, no rales or rhonchi Gastrointestinal: normoactive bowel sounds, soft, non-tender abdomen Genitourinary: no bladder fullness, No ramirez in urethra Skin: warm, normal color Musculoskeletal: full muscle strength Neurologic: AAOx3 ICD10 Worksheet Patient Problems: Problems Problem Status Onset Cardiac arrest Acute Unresponsive Acute
[2018-06-06] MEDS ORDERED: HYDROCODONE/APAP 5/325 TAB PO PRN (16:15)
--- NOTE | 2018-06-06 16:38 | ASMTCMCOM ---
CM Note CM Note Notes: Spoke with [employer] today and Rachel states the family has not made a decision yet on whether they want to apply for Medicaid. They are looking into having the patient reinstated on their insurance. Patient is still self pay which limits his options. D/C plan remains TBD.CM will follow. Date Signed: 06/06/2018 04:37 PM Electronically Signed By:Shaniqua Wadsworth LCSW
[2018-06-07] MEDS: AMPICILLIN/SULBACTAM 3 GM in NS 100 ML IV SCH ×2 (02:37→09:36)
[2018-06-07 04:41] LABS: PLATELET COUNT 277 10^3/uL (150-400)
--- NOTE | 2018-06-07 09:15 | PDCARPN ---
Cardiology Progress Note Chief Complaint: VF arrest s/p dual-chamber ICD Assessment/Plan: Assessment: 1. Witnessed VF arrest s/p HACA and rewarming with what appears to be full neuro recovery. Cardiac MRI was unremarkable. [employer] dual-chamber ICD implanted yesterday 2. Pneumonia - on Unasyn Plan: 1. Left arm precautions for 6 weeks. 2. Keep left pectoral dressing clean and dry. Powell will be removed during a wound check with [facility] in 1 week. 2. Plan for outpatient genetic testing to rule out CPVT and long QT. 3. Avoid competitive athletics and high intensity exertion >60 minutes ( discontinue ultramarathon training at this time) 4. Continue Metoprolol 12.5mg BID 5. No driving for 6 months 6. James is appropriate for discharge home from a cardiovascular standpoint. EP will sign off for now. 7. Follow-up with [facility] in 1 week. Follow-up with Dr. Baugh in 2-4 weeks. 06/07/18 09:15 Subjective: No issues overnight, mild left chest stiffness, no cardiovascular symptoms Reviewed/Discussed With: multidisciplinary team Time Spent with Patient: greater than 25 minutes Time Spent with Patient: Greater than 25 minutes spent on this patients care, greater than 50% of time spent counseling, educating, and coordinating care regarding the above mentioned plan. Objective: Vital Signs (8 Hrs) Temp Pulse Resp BP Pulse Ox 06/07/18 07:29 36.9 C 90 124/76 H 95 06/07/18 04:00 36.6 C 66 20 96/53 L 93 Intake/Output (24 Hrs) 06/06/18 06/07/18 06/08/18 05:59 05:59 05:59 Intake Total 1770 850 Output Total 200 Balance 1770 850 -200 Intake: Oral (ml) 1550 850 IV Intake (ml) 0 IV Infused (ml) 220 Ampicillin/Sulbactam 3 gm 220 In Ns 100 ml @ 200 mls/ hr IV Q6H [facility] Rx#: [id number] Output: Urine (ml) 200 Toilet 200 Other: Weight 63.7 kg Number of Voids Toilet 2 1 Number of Stools Toilet 1 Result Diagrams: 06/07/18 03:34 06/07/18 03:34 Telemetry: NSR - Physical Exam Constitutional: WDWN, healthy appearing, no apparent distress Ears, Nose, Mouth, Throat: moist mucous membranes, no oral ulcers, no thrush Cardiovascular: regular rate and rhythm, no murmurs, no rubs, no gallops Peripheral Pulses: 2+: dorsalis-pedis (R), dorsalis-pedis (L) Respiratory: clear to auscultate bilat, no crackles, no wheezes Gastrointestinal: normoactive bowel sounds, no tenderness, no masses Skin: no rashes, no abrasions, no ulcers, other (left pectoral dressing is clean and dry) Neurologic: AAOx3, CN II-XII grossly intact Psychiatric: cooperative, interactive, following commands, not anxious ICD10 Worksheet Patient Problems: Problems Problem Status Onset Cardiac arrest Acute Unresponsive Acute
[2018-06-07] MEDS: METOPROLOL TARTRATE 25 MG TAB PO SCH (09:31)
[2018-06-07] MEDS: PANTOPRAZOLE SODIUM 40 MG TAB PO SCH (09:32)
[2018-06-07] MEDS: ENOXAPARIN 40 MG/0.4 ML SYR SC SCH (09:34)
[2018-06-07] MEDS: SENNOSIDES/DOCUSATE SODIUM TAB PO SCH (09:43)
--- NOTE | 2018-06-07 09:53 | HOSPPROG ---
Hospitalist Progress Note Assessment/Plan: Healthy 22-year-old collapsed while playing soccer. Status post cardiac arrest- chest compressions began in the field almost immediately. AED fired 1 time and download from AED revealed possible torsades. Status post rewarming from HACA protocol, has been febrile since rewarming however asymptomatic status post cardiac arrest, status post HACA protocol. Extubated and patient alert * Cardiac catheterization and echocardiogram were unremarkable * AICD yesterday appears to have had an excellent neurologic outcome fever: aspiration pneumonia treat for 7 days total give new hardware acute respiratory failure: resolved GI bleed likely gastritis with coffee-ground emesis and black stools noted. Given HACA protocol, likely bleed exacerbated from a platelet dysfunction * Post warming his GI bleeding has ceased. * Discontinue PPI, patient is stable with normal bowel movements no evidence of ongoing bleeding nutrition: Regular diet hypokalemia, can resume electrolyte protocol once patient is warmed home today > 30 minutes on dc Subjective: ok for dc. no cp, palps Objective: Vital Signs Temp Pulse Resp BP Pulse Ox 36.9 C 80 20 119/80 95 06/07/18 07:29 06/07/18 09:31 06/07/18 04:00 06/07/18 09:31 06/07/18 07:29 Laboratory Results 06/07/18 03:34 06/07/18 03:34 06/06/18 06/07/18 06/08/18 05:59 05:59 05:59 Intake Total 1770 850 Output Total 200 Balance 1770 850 -200 PT 13.2 SEC (12.0-15.0) 06/06/18 03:32 INR 0.98 (0.83-1.16) 06/06/18 03:32 - Physical Exam Constitutional: no apparent distress, appears nourished Eyes: PERRL, anicteric sclera Ears, Nose, Mouth, Throat: moist mucous membranes, hearing normal Cardiovascular: regular rate and rhythym, no murmur, rub, or gallop Respiratory: no respiratory distress, no rales or rhonchi Gastrointestinal: normoactive bowel sounds, soft, non-tender abdomen Genitourinary: no bladder fullness, No ramirez in urethra Skin: warm, normal color Musculoskeletal: full muscle strength ICD10 Worksheet Patient Problems: Problems Problem Status Onset Cardiac arrest Acute Unresponsive Acute
--- NOTE | 2018-06-07 10:19 | GDS ---
[f rep st] DISCHARGE SUMMARY DISCHARGE DIAGNOSES: 1. Sudden cardiac . 2. History of aspiration pneumonia. 3. Status post automated implantable cardioverter-defibrillator. 4. Status post hypothermia after cardiac arrest with outstanding neurologic recovery. HOSPITAL COURSE: Please see admission history and physical by Dr. Marito Hastings. The patient col lapsed while playing soccer. CPR was initiated, immediately followed by an AED with shock. He was p resented to the hospital and went immediately to the systems testing laboratory technician showing angiographically normal coronar y arteries and intact LV function with slightly elevated end-diastolic pressure. He was seen by Critical Care. He had an echocardiogram showing normal LV size and function without s ignificant valvular lesion. The patient underwent the HACA protocol and with rewarming appeared to h ave outstanding neurologic outcome, and this was concurred with his family. He underwent a cardiac M RI which was relatively unremarkable. He was seen by EP who placed AICD. He was initiated on beta b lockade. The patient did have a concern for an aspiration pneumonia with right lower lobe and middle lobe infi ltrate and received 5 days of Unasyn, followed by 2 additional days of Augmentin. He is on room air without productive cough. He has outpatient followup with EP. He was given precautions for left arm movement. /[id number]/MODL
[2018-06-07 11:39] VITALS: BP 111/65
--- NOTE | 2018-06-07 19:52 | CPEKG ---
Test Reason : OPEN Blood Pressure : / mmHG Vent. Rate : 083 BPM Atrial Rate : 084 BPM P-R Int : 147 ms QRS Dur : 091 ms QT Int : 332 ms P-R-T Axes : 065 081 -59 degrees QTc Int : 390 ms Sinus rhythm Nonspecific intraventricular conduction delay LVH with strain Confirmed by Ricco Baugh ([id number]) on 06/07/2018 7:51:57 PM Referred By: Cedrick Hastings Confirmed By:Ricco Baguh
--- NOTE | 2018-06-07 20:02 | CPEKG ---
Test Reason : OPEN Blood Pressure : / mmHG Vent. Rate : 091 BPM Atrial Rate : 091 BPM P-R Int : 167 ms QRS Dur : 091 ms QT Int : 327 ms P-R-T Axes : 075 071 -32 degrees QTc Int : 403 ms Sinus rhythm Nonspecific T abnormalities, inferior leads Borderline ST elevation, anterior leads Confirmed by Ricco Baugh ([id number]) on 06/07/2018 8:01:40 PM Referred By: Cedrick Hastings Confirmed By:Ricco Baugh
--- NOTE | 2018-06-11 21:45 | CPEKG ---
Test Reason : OPEN Blood Pressure : / mmHG Vent. Rate : 072 BPM Atrial Rate : 072 BPM P-R Int : 178 ms QRS Dur : 092 ms QT Int : 408 ms P-R-T Axes : 079 084 022 degrees QTc Int : [address] elev, probable normal early repol pattern Confirmed by Aashish Aguilera ([id number]) on 06/11/2018 9:45:06 PM Referred By: Cedrick Hastings Confirmed By:Aashish Aguilera
== END 2018-06-07 11:55 | disposition home or self-care (01) | DRG 224 ==
LOC: EDBD 17:59 → F2N 21:16 → F2W 06-04 16:10
PROVIDERS: ADMIT Family Medicine; ATTEND Family Medicine
PROC: 0BH17EZ Insertion of Endotracheal Airway into Trachea, Via Natural or Artificial Opening (ICD-10-PCS; 2018-05-31)
PROC: 5A1945Z Respiratory Ventilation, 24-96 Consecutive Hours (ICD-10-PCS; 2018-05-31)
PROC: 06HM33Z Insertion of Infusion Device into Right Femoral Vein, Percutaneous Approach (ICD-10-PCS; 2018-05-31)
PROC: B2111ZZ Fluoroscopy of Multiple Coronary Arteries using Low Osmolar Contrast (ICD-10-PCS; 2018-05-31)
PROC: B2151ZZ Fluoroscopy of Left Heart using Low Osmolar Contrast (ICD-10-PCS; 2018-05-31)
PROC: 4A023N7 Measurement of Cardiac Sampling and Pressure, Left Heart, Percutaneous Approach (ICD-10-PCS; 2018-05-31)
PROC: 0JH609Z Insertion of Cardiac Resynchronization Defibrillator Pulse Generator into Chest Subcutaneous Tissue and Fascia, Open Approach (ICD-10-PCS; principal; 2018-06-06)
PROC: 02H63KZ Insertion of Defibrillator Lead into Right Atrium, Percutaneous Approach (ICD-10-PCS; principal; 2018-06-06)
PROC: 02HK3KZ Insertion of Defibrillator Lead into Right Ventricle, Percutaneous Approach (ICD-10-PCS; principal; 2018-06-06)
DX: I46.9 Cardiac arrest, cause unspecified (principal); J69.0 Pneumonitis due to inhalation of food and vomit; E86.9 Volume depletion, unspecified; E87.6 Hypokalemia
CPT/HCPCS: 80305; 82435-PO; 82565-PO; 82947-PO; 83605-ER; 84132-PO; 84295-PO; 84484-ER; 84520-PO; 85014-ER; 92507-GN; 92523-GN; 96365; 97161-GP; 97165-GO; 97530-GO; 97535-GO; A9585; C1721; C1777; C1898; J0295; J0330; J0461; J0583; J0610; J0690; J1100; J1644; J1650; J1953; J2250; J2270; J2370; J2405; J2704; J3010; J3475; J3480; Q9967